=== PATIENT | female | born 1985 | race Caucasian/White ===

== ENCOUNTER 2016-09-30 18:06 | Emergency (ER) | payer MEDICARE, MEDICAID ==
[~2016-09-30] VITALS: Wt 58.0 kg
[~2016-09-30 18:06] MED LIST: ARIP5TAB7; QUET25TA26; SERT25TA
--- NOTE | 2016-09-30 18:27 | ERD ---
ER Documentation Chief Complaint Date/Time DATE: 09/30/16 TIME: 18:20 Chief Complaint abd pain, n/v HPI 30-year-old female presents to the emergency department with multiple complaints which includes epigastric pain that has been on and off for months, nauseated but no vomiting. On initial contact I noted that that there is a pack of hot Cheetos at the patient's bedside. Patient stated that she just finished a pack of hot Cheetos. Denies headache, loss of consciousness, dizziness, blurry vision, changes in vision, photophobia, facial pain, ear pain, throat pain, difficulty swallowing, neck pain, shoulder pain, chest pain, cough, hemoptysis, back pain, loss of appetite, vomiting, hematochezia, diarrhea, constipation, urinary symptoms, , the possibility of being , bladder and bowel incontinences, extremity weakness, extremity tenderness, numbness or tingling sensation, difficulty walking, recent travel, recent exposure to illness, recent antibiotic use in the last 3 months, fever, chills. Allergy: No known drug allergies. PMH: Denies. Family medical history: Denies family history of cardiac before the age of 50, cardiac disease, hypertension, cancer. A4 LMP: "2 weeks ago." Medications: Denies. Surgery: Stated that she had a cyst removal to her left chest previously. Primary Social History: Not working at this time. Smokes about 10 sticks of cigarettes a day. Denies use of alcohol, use of illegal drugs. ROS All systems reviewed and are negative except as per history of present illness. Medications Home Meds Active Scripts Acetaminophen* (Tylophen*) 500 Mg Capsule, 1 CAP PO Q6H Y for PAIN AND OR ELEVATED TEMP, #20 CAP Prov:LEIF HERNANDEZ F 09/30/16 Ondansetron Hcl* (Zofran*) 4 Mg Tablet, 4 MG PO Q8H Y for NAUSEA AND/OR VOMITING , #30 TAB Prov:PASILALEIF INFANTE F 09/30/16 Famotidine* (Pepcid*) 20 Mg Tablet, 20 MG PO DAILY for 21 Days, TAB Prov:PASILALO INFANTEAR F 09/30/16 Reported Medications Quetiapine Fumarate* (Seroquel*) 25 Mg Tablet 11/24/09 Sertraline Hcl* (Zoloft*) 25 Mg Tablet 11/24/09 Aripiprazole* (Abilify*) 5 Mg Tab 11/24/09 Allergies Allergies: Coded Allergies: No Known Drug Allergies (Verified Allergy, Mild, 11/24/09) PMhx/Soc Medical and Surgical Hx: pt denies Medical Hx History of Surgery: No Anesthesia Reaction: No Hx Neurological Disorder: No Hx Respiratory Disorders: No Hx Cardiac Disorders: No Hx Psychiatric Problems: Yes (H/O BIPOLAR DISORDER) Hx Miscellaneous Medical Probl: No Hx Alcohol Use: Yes (BEER 1-2 TIMES PER WEEK) Hx Substance Use: No Hx Tobacco Use: Yes (10 STICKS PER DAY 11/23) Smoking Status: Current every day smoker Physical Exam Vitals Vital Signs Date Time Temp Pulse Resp B/P Pulse Ox O2 Delivery O2 Flow Rate FiO2 09/30/16 18:08 97.2 107 20 113/65 98 Physical Exam CONSTITUTIONAL: Well-appearing; well-nourished; in no apparent distress. HEAD: Normocephalic; atraumatic. EYES: Conjunctiva clear, sclera non-icteric, EOM intact. PERRL Ears: Hearing intact. EACs clear, TMs non-bulging, non-inflamed, translucent & mobile, ossicles normal appearance, No obstructions, no erythema, no discharges Nose: No obstructions. No polyps. No external lesions. Mucosa non-inflamed. No external lesions, septum and turbinates normal. No rhinorrhea. No discharges. Frontal sinus is non-tender to palpation. Maxillary sinus is non-tender to palpation. MOUTH: Moist mucous membranes, no lesion, no obstructions, no vesicles, no thrush, patent airway Throat: Uvula in midline. Right tonsil is +1 with no erythema, no exudate. Left tonsil is +1 with no erythema, no exudate. Tolerating secretions well. Good gag reflex. Patent airway. Neck: Supple, without lesions, bruits, or adenopathy. No mass. Thyroid non- enlarged and non-tender to palpation. CHEST: Symmetrical chest. Respirations even and not labored. No retractions noted. CARDIOVASCULAR: Normal S1, S2. RRR. No murmurs, gallops. RESPIRATORY: Normal chest excursion with respiration; breath sounds clear and equal bilaterally; no wheezes, rhonchi, or rales. Breathing even and unlabored. Speaking in clear, full, and complete sentences w/ ease. ABDOMEN: Normal bowel sounds normal. Soft, round, non-distended, non-guarding, no tenderness, no rebound, no organomegaly, no masses, no pulsating abdominal mass. There is no right upper/right lower/epigastric/left upper/left lower abdominal tenderness and light and deep palpation. Negative on Rovsing's sign. Negative [place] sign. No hernia. Able to jump 10 times without developing abdominal pain. No peritoneal signs. : No CVA tenderness. BACK: Symmetrical shoulder. Spine is midline without deformity, tenderness. No evidence of trauma or deformity. PELVIS: Stable pelvis. No evidence of trauma or deformity. MUSCULOSKELETAL: Normal gait and station. No misalignment, asymmetry, crepitation, defects, tenderness, masses, effusions, decreased range of motion, instability, atrophy or abnormal strength or tone in the head, neck, spine, ribs , pelvis or extremities. No calf tenderness. NEUROVASCULAR: Distal pulses are present. Pedal pulse are present, equal, and normal. Capillary refills are < 2 seconds. NEUROLOGIC: Alert and oriented x4. Speaks full and clear sentences. Cranial Nerves II-XII normal. Sensation to pain, touch, and proprioception normal. Grossly unremarkable. No neurologic deficits. Romberg test is negative. PSYCHOLOGICAL: The patients mood and manner are appropriate. No hallucinations , delusions. Not SI. Not HI. Has the capacity to decide for self SKIN: Normal for age and ethnicity; warm; dry; good turgor; no apparent lesions or exudates. No rashes, hives, discoloration. Intact. Results 24 hrs Laboratory Tests Test 09/30/16 18:34 Urine Color YELLOW Urine Clarity CLOUDY Urine pH 6.5 Urine Specific [place] 1.020 Urine Ketones TRACE Urine Nitrite POSITIVE Urine Bilirubin 1+ Urine Ictotest Pending Urine Urobilinogen 1.0 E.U./dL Urine Leukocyte Esterase NEGATIVE Urine Microscopic RBC Pending Urine Microscopic WBC Pending Urine Hemoglobin NEGATIVE Urine Glucose NEGATIVE% Urine Total Protein TRACE Current Medications Medications (Trade) Dose Ordered Sig/Brii Route PRN Reason Start Time Stop Time Status Last Admin Dose Admin Miscellaneous Medication (Gi Cocktail (2)) 40 ml ONCE ONCE PO 09/30/16 18:30 09/30/16 18:31 DC 09/30/16 18:35 Ondansetron HCl (Zofran Odt) 4 mg ONCE STAT ODT 09/30/16 18:28 09/30/16 18:29 DC 09/30/16 18:35 Procedures/MDM Examination: Please see physical examination. Disease process, medical treatment was explained to the patient and family member. They verbalized understanding and agreed with the diagnostic tests, medical treatment, and follow-up care. POC urine : Negative. Urinalysis: Treatment: Zofran. GI cocktail. P.o. challenge. Re-evaluation: Denies headache, dizziness, blurry vision, neck pain, throat pain , shoulder pain, difficulty swallowing, nausea, vomiting, back pain, abdominal pain. Able to tolerate one cup of water. No episode of emesis. The emergency department. There is no right upper/right lower/epigastric/left upper/left lower abdominal tenderness and light and deep palpation. Negative on Rovsing's sign. Negative [place] sign. No hernia. Able to jump 10 times without developing abdominal pain. No peritoneal signs. No neurological deficits. No neurovascular deficits. Consultation: None. Differential diagnosis: Appendicitis versus cholecystitis versus pancreatitis versus abdominal pain versus gastritis versus urinary tract infection Medical decision makin-year-old female presents to the emergency department with multiple complaints complaining of epigastric pain that has been on and off for months, nauseated but no vomiting. On initial contact I noted that that there is a pack of Cheetos at the patient's bedside. Patient stated that she just finished a pack of Cheetos. Patient's complaint, patient' s history about her complaint, my physical findings, diagnostic test results, my reevaluation are consistent my final diagnosis of abdominal pain, nausea, gastritis, urinary tract infection. I was about to discharge patient when Cat RN, stated that patient has already eloped. Patient was last seen at around 19:00 in the waiting area with acute distress. At this time patient was also seen eating hot Cheetos. Departure Diagnosis: Primary Impression: Abdominal pain Additional Impressions: Gastritis UTI (urinary tract infection) Condition: Stable LEIF HERNANDEZ Sep 30, 2016 18:27 LEIF HERNANDEZ Sep 30, 2016 18:27
[2016-09-30] MEDS ORDERED: ONDANSETRON (ODT) 4 MG TAB ODT STA (18:28)
[2016-09-30] MEDS ORDERED: LIDOCAINE/MYLANTA 40 ML BTL PO ONE (18:30)
[2016-09-30] MEDS ORDERED: ACET500C5 PO (19:22)
[2016-09-30] MEDS ORDERED: ONDA4TAB8 PO (19:22)
[2016-09-30] MEDS ORDERED: FAMO-18 PO (19:22)
[2016-09-30 19:25] LABS: ADD UMIC YES; URINE BILIRUBIN (Dip) 1+ (NEGATIVE); URINE BLOOD (Dip) NEGATIVE (NEGATIVE); URINE COLOR YELLOW (YELLOW); URINE GLUCOSE (Dip) NEGATIVE (NEGATIVE); URINE KETONES (Dip) TRACE (NEGATIVE); URINE LEUKOCYTE ESTERASE (Dip) NEGATIVE (NEGATIVE); URINE NITRITE (Dip) POSITIVE (NEGATIVE); URINE TOTAL PROTEIN (Dip) TRACE (NEGATIVE); URINE UROBILINOGEN (Dip) 1.0 E.U./dL (0.1-1.0)
[2016-09-30 19:47] LABS: BACTERIA,URINE MANY; ICTOTEST NEGATIVE (NEGATIVE); SQUAMOUS EPITHELIAL CELL,UR FEW; URINE RBCS 0-2 /HPF (0)
== END 2016-09-30 19:44 | disposition left against medical advice (07) ==
LOC: FTE 18:06
DX: R10.13 Epigastric pain (principal); K29.70 Gastritis, unspecified, without bleeding; N39.0 Urinary tract infection, site not specified; R11.2 Nausea with vomiting, unspecified; F17.210 Nicotine dependence, cigarettes, uncomplicated
CPT/HCPCS: 81001; 99283

== ENCOUNTER 2016-11-09 20:52 | Emergency (ER) | payer MEDICARE, OTHER ==
[~2016-11-09] VITALS: Ht 152.4 cm; Wt 52.5 kg
[~2016-11-09 20:52] MED LIST changes: +ACET500C5 PO; +FAMO-96 PO; +ONDA4TAB8 PO
[2016-11-09 21:12] VITALS: Ht 152.4 cm; Wt 52.5 kg
[2016-11-09] MEDS ORDERED: CEFTRIAXONE 250 MG INJ IM ONE (22:00)
[2016-11-09] MEDS ORDERED: AZITHROMYCIN 250 MG TAB PO ONE (22:00)
[2016-11-09] MEDS ORDERED: LIDOCAINE 2% (MDV) 20 ML INJ INJ ONE (22:00)
[2016-11-09 23:11] LABS: ADD UMIC YES; UR ASCORBIC ACID NEGATIVE (NEGATIVE); UR BACTERIA MODERATE /HPF (NONE SEEN); UR BILIRUBIN (Dip) 1+ mg/dL (NEGATIVE); UR BLOOD (Dip) NEGATIVE (NEGATIVE); UR CLARITY CLOUDY (CLEAR); UR COLOR AMBER (YELLOW); UR GLUCOSE (Dip) NEGATIVE (NEGATIVE); UR KETONES (Dip) TRACE mg/dL (NEGATIVE); UR LEUKOCYTE ESTERASE (Dip) 2+ Leu/ul (NEGATIVE); UR MUCUS MANY /HPF (NONE SEEN); UR NITRITE (Dip) NEGATIVE (NEGATIVE); UR RBC 2 /HPF (0-5); UR SPECIFIC GRAVITY (Dip) 1.028 (1.003-1.030); UR SQUAMOUS EPITHELIAL CELL FEW /HPF (FEW); UR TOTAL PROTEIN (Dip) 1+ mg/dl (NEGATIVE); UR UROBILINOGEN (Dip) 1+ mg/dL (NEGATIVE)
[2016-11-09] MEDS ORDERED: METGEL45 TOP (23:26)
[2016-11-09] MEDS ORDERED: CLOT30CR24 TOP (23:27)
[2016-11-09] MEDS ORDERED: CEPH-443 PO (23:27)
[2016-11-09] MEDS ORDERED: NORG1TAB34 PO (23:27)
--- NOTE | 2016-11-09 23:44 | ERD ---
ER Documentation Chief Complaint Date/Time DATE: 11/09/16 TIME: 23:40 Chief Complaint Pt reports she has bacterial vaginitis and would like gel medication HPI This is a 30-year-old female presents to the ER with foul-smelling vaginal discharge over the last 2 weeks. Patient denies any pelvic pain. Patient states that she got a prescription for metronidazole however has not worked. Patient states that she is currently sexually active with her boyfriend and uses protection. Patient is also worried about a hemorrhoid that she has had for a while, she does not have any rectal bleeding or rectal pain at this time. Patient denies any urinary frequency or dysuria. He smokes about 5 cigarettes a day. ROS 12 point review of systems was done, all negative except per HPI. Medications Home Meds Active Scripts Norgestimate-Ethinyl Estradiol (Ortho Tri-Cyclen 28 Tablet) 1 Each Tablet, 1 EACH PO QHS for 28 Days, TAB Prov:GUY OSEI 11/09/16 Clotrimazole* (Clotrimazole* AF) 1% - 30 Gm Cream.gm., 1 APPLIC TOP BID for 7 Days, TUB Prov:AFRNAZGUY C 11/09/16 Cephalexin* (Keflex*) 500 Mg Capsule, 500 MG PO BID for 7 Days, CAP Prov:FARNAZGUY C 11/09/16 Metronidazole* (Metrogel*) 0.75% -45 Gram Gel, 1 APPLIC TOP BID for 7 Days, TUB Prov:KATHYA OSEIYOLANDA Maldonado 11/09/16 Acetaminophen* (Tylophen*) 500 Mg Capsule, 1 CAP PO Q6H Y for PAIN AND OR ELEVATED TEMP, #20 CAP Prov:LEIF HERNANDEZ 09/30/16 Ondansetron Hcl* (Zofran*) 4 Mg Tablet, 4 MG PO Q8H Y for NAUSEA AND/OR VOMITING , #30 TAB Prov:LEIF HERNANDEZ 09/30/16 Famotidine* (Pepcid*) 20 Mg Tablet, 20 MG PO DAILY for 21 Days, TAB Prov:LEIF HERNANDEZ 09/30/16 Reported Medications Quetiapine Fumarate* (Seroquel*) 25 Mg Tablet 11/24/09 Sertraline Hcl* (Zoloft*) 25 Mg Tablet 11/24/09 Aripiprazole* (Abilify*) 5 Mg Tab 11/24/09 Allergies Allergies: Coded Allergies: No Known Drug Allergies (Verified Allergy, Mild, 11/24/09) diphenhydramine (Verified Allergy, Unknown, 11/09/16) PMhx/Soc History of Surgery: Yes (dermal cyst removal ) Anesthesia Reaction: No Hx Neurological Disorder: No Hx Respiratory Disorders: No Hx Cardiac Disorders: No Hx Psychiatric Problems: Yes (H/O BIPOLAR DISORDER on abilify) Hx Miscellaneous Medical Probl: Yes (bacterial vaginosis) Hx Alcohol Use: Yes (seldom) Hx Substance Use: No Hx Tobacco Use: Yes (10 STICKS PER DAY) Smoking Status: Current every day smoker Physical Exam Vitals Vital Signs Date Time Temp Pulse Resp B/P Pulse Ox O2 Delivery O2 Flow Rate FiO2 11/09/16 21:12 97.4 139 18 134/88 99 Physical Exam GENERAL: The patient is well developed and appropriate for usual state of health , in no apparent distress. HEENT: Atraumatic. CHEST: Clear to auscultation bilaterally. There are no rales, wheezes or rhonchi. HEART: Regular rate and rhythm. No murmurs, clicks, rubs or gallops. ABDOMEN: Soft, nontender and nondistended. Good bowel sounds. No rebound or guarding. No gross peritonitis. No gross organomegaly or masses. No Cedillo sign or McBurney point tenderness. BACK: No midline or flank tenderness. : there is foul smelling panchal vaginal discharge, external genitalia is normal with no lesions. negative chandelier sign. RECTAL: there is an external hemorrhoid seen, no bleeding. Beefy red rash around anus NEURO: Alert and oriented. Results 24 hrs Laboratory Tests Test 11/09/16 20:37 Urine Color ELLIE Urine Clarity CLOUDY Urine pH 5.0 Urine Specific [place] 1.028 Urine Ketones TRACEmg/dL Urine Nitrite NEGATIVEmg/dL Urine Bilirubin 1+mg/dL Urine Urobilinogen 1+mg/dL Urine Leukocyte Esterase 2+Marielena/ul Urine Microscopic RBC 2/HPF Urine Microscopic WBC 8/HPF Urine Squamous Epithelial Cells FEW/HPF Urine Bacteria MODERATE/HPF Urine Mucus MANY/HPF Urine Hemoglobin NEGATIVEmg/dL Urine Glucose NEGATIVEmg/dL Urine Total Protein 1+mg/dl Current Medications Medications (Trade) Dose Ordered Sig/Brii Route PRN Reason Start Time Stop Time Status Last Admin Dose Admin Ceftriaxone Sodium (Rocephin) 250 mg ONCE ONCE IM 11/09/16 22:00 11/09/16 22:01 DC 11/09/16 22:18 Lidocaine (Xylocaine 2% (Mdv) 20 ml) 20 ml ONCE ONCE INJ 11/09/16 22:00 11/09/16 22:01 DC Azithromycin (Zithromax) 1,000 mg ONCE ONCE PO 11/09/16 22:00 11/09/16 22:01 DC 11/09/16 22:18 Procedures/MDM This is a 30-year-old female presents to the ER with ongoing vaginal discharge, at this time patient's was treated prophylactically for chlamydia and gonorrhea and her urine was sent to the lab for testing. On physical examination she did have foul-smelling discharge will be sent home with MetroGel. Patient was also noted to have a beefy red rash around the anus which could be fungal in etiology. Urinalysis was positive for leukocytes she will be treated for urinary tract infection with Keflex. Patient also requested control which was given to her. She denied any problems with blood pressure or any other medical problems which would be contraindicated in control. Patient is to follow-up with her primary care doctor within 1-2 days return to ER sooner if symptoms worsen. My medical decision making shared with the patient she understands and agrees with plan. Departure Diagnosis: Primary Impression: UTI (urinary tract infection) Additional Impression: Bacterial vaginosis Condition: Stable Patient Instructions: Vaginitis, Bacterial Additional Instructions: Call your primary care doctor TOMORROW for an appointment during the next 1-2 days.See the doctor sooner or return here if your condition worsens before your appointment time. GUY OSEI Nov 09, 2016 23:44
== END 2016-11-10 00:14 | disposition left against medical advice (07) ==
LOC: FTE 20:52
DX: N39.0 Urinary tract infection, site not specified (principal); F17.210 Nicotine dependence, cigarettes, uncomplicated
CPT/HCPCS: 81001; 87591; 96372; 99284; J0696

== ENCOUNTER 2016-12-16 12:32 | Emergency (ER) | payer MEDICARE, OTHER ==
[~2016-12-16] VITALS: Ht 152.4 cm; Wt 47.5 kg
[~2016-12-16 12:32] MED LIST changes: +CEPH-443 PO; +CLOT30CR24 TOP; +METGEL45 TOP; +NORG1TAB34 PO
[2016-12-16 12:43] VITALS: Ht 152.4 cm; Wt 47.5 kg
[2016-12-16] MEDS ORDERED: HYDROmorphONE 1 MG/ML SYG IV STA (13:18)
--- NOTE | 2016-12-16 13:21 | ERD ---
ER Documentation Chief Complaint Date/Time DATE: 12/16/16 TIME: 13:21 Chief Complaint Complains of a cellulites to right ankle HPI 30-year-old female previously healthy is presenting with redness and pain behind her right leg. She states it is a "spider bite". She noticed that 2 days ago, and it has been getting progressively worse. She has pain with walking but is able to bear weight on the leg. She denies any IV drug use or any history of abscesses. No fevers or chills. ROS All systems reviewed and are negative except as per history of present illness. Medications Home Meds Active Scripts Ibuprofen* (Motrin*) 600 Mg Tab, 600 MG PO Q6H Y for PAIN AND OR ELEVATED TEMP, #30 TAB Prov:ROBERTO DOMINGUEZ MD 12/16/16 Sulfamethoxazole/Trimethoprim* (Bactrim Ds* Tablet) 1 Each Tablet, 1 TAB PO BID , #14 TAB Prov:ROBERTO DOMINGUEZ MD 12/16/16 Cephalexin* (Keflex*) 500 Mg Capsule, 500 MG PO TID for 7 Days, CAP Prov:ROBERTO DOMINGUEZ MD 12/16/16 Norgestimate-Ethinyl Estradiol (Ortho Tri-Cyclen 28 Tablet) 1 Each Tablet, 1 EACH PO QHS for 28 Days, TAB Prov:GUY OSEI 11/09/16 Clotrimazole* (Clotrimazole* AF) 1% - 30 Gm Cream.gm., 1 APPLIC TOP BID for 7 Days, TUB Prov:GUY OSEI 11/09/16 Cephalexin* (Keflex*) 500 Mg Capsule, 500 MG PO BID for 7 Days, CAP Prov:GUY OSEI 11/09/16 Metronidazole* (Metrogel*) 0.75% -45 Gram Gel, 1 APPLIC TOP BID for 7 Days, TUB Prov:GUY OSEI 11/09/16 Acetaminophen* (Tylophen*) 500 Mg Capsule, 1 CAP PO Q6H Y for PAIN AND OR ELEVATED TEMP, #20 CAP Prov:ELIF HERNANDEZ 09/30/16 Ondansetron Hcl* (Zofran*) 4 Mg Tablet, 4 MG PO Q8H Y for NAUSEA AND/OR VOMITING , #30 TAB Prov:LEIF HERNANDEZ 09/30/16 Famotidine* (Pepcid*) 20 Mg Tablet, 20 MG PO DAILY for 21 Days, TAB Prov:LEIF HERNANDEZ 09/30/16 Reported Medications Quetiapine Fumarate* (Seroquel*) 25 Mg Tablet 11/24/09 Sertraline Hcl* (Zoloft*) 25 Mg Tablet 11/24/09 Aripiprazole* (Abilify*) 5 Mg Tab 11/24/09 Allergies Allergies: Coded Allergies: diphenhydramine (Verified Allergy, Unknown, 11/09/16) PMhx/Soc History of Surgery: Yes (dermal cyst removal ) Anesthesia Reaction: No Hx Neurological Disorder: No Hx Respiratory Disorders: No Hx Cardiac Disorders: No Hx Psychiatric Problems: Yes (H/O BIPOLAR DISORDER on abilify) Hx Miscellaneous Medical Probl: Yes (bacterial vaginosis) Hx Alcohol Use: Yes (seldom) Hx Substance Use: No Hx Tobacco Use: Yes (10 STICKS PER DAY) FmHx Family History: No diabetes Physical Exam Vitals Vital Signs Date Time Temp Pulse Resp B/P Pulse Ox O2 Delivery O2 Flow Rate FiO2 12/16/16 12:43 98.6 114 20 119/68 99 Physical Exam Const: Well-appearing, no apparent distress, dirty clothing Head: Atraumatic Eyes: Normal Conjunctiva ENT: Normal External Ears, Nose and Mouth. Neck: Full range of motion..~ No meningismus. Resp: Clear to auscultation bilaterally Cardio: Regular rate and rhythm, no murmurs Abd: Soft, non tender, non distended. Normal bowel sounds Skin: Erythematous area behind the right lower leg over Achilles tendon with a 4 x 3 centimeter area of fluctuance and surrounding induration. No erythema or swelling overlying the actual ankle joint. She is able to range the ankle with no significant pain. Foot appears normal. 2+ DP and PT pulses. Back: No midline or flank tenderness Ext: See skin exam. Neur: Awake and alert Psych: Normal Mood and Affect Results 24 hrs Current Medications Medications (Trade) Dose Ordered Sig/Brii Route PRN Reason Start Time Stop Time Status Last Admin Dose Admin Hydromorphone HCl (Dilaudid) 0.5 mg ONCE STAT IV 12/16/16 13:18 12/16/16 13:19 DC 12/16/16 13:34 Trimethoprim/ Sulfamethoxazole (Bactrim (Ds)) 1 tab ONCE ONCE PO 12/16/16 13:30 12/16/16 13:31 DC 12/16/16 13:34 Cephalexin (Keflex) 500 mg ONCE ONCE PO 12/16/16 13:30 12/16/16 13:31 DC 12/16/16 13:34 Lidocaine/ Epinephrine (Xylocaine 2%/ Epi Mpf(Sdv)) 20 ml ONCE ONCE INJ 12/16/16 13:30 12/16/16 13:31 DC 12/16/16 13:34 Midazolam HCl (Versed) 2 mg PRN ONCE IV 12/16/16 14:00 12/16/16 14:01 Acetaminophen/ Hydrocodone Bitart ([place] (10/325)) 1 tab ONCE ONCE PO 12/16/16 14:00 12/16/16 14:01 Procedures/MDM Abscess Incision and Drainage with irrigation by me: Location: Right posterior lower leg Anesthesia: Local 2% Lidocaine with epinephrine Technique: Irrigated. Disrupted loculations w/ instrumentation Packing: None Complications: None. Neurovascularly intact post procedure. Tendon intact post procedure 48 hour wound check. Scar minimization instructions given. Wound care was discussed for home. Patient's skin symptoms have stabilized while they have been evaluated in the department and are appropriate for outpatient care and work up. Exam and w/u not consistent w/ sepsis, deep space infection, joint infection or foreign body. Patient will be discharged with a prescription for Bactrim and Keflex. Departure Diagnosis: Primary Impression: Cellulitis of right lower leg Additional Impression: Abscess of right leg excluding foot Condition: Stable EKROBERTO MARIANO MD Dec 16, 2016 13:21
[2016-12-16] MEDS ORDERED: CEPHALEXIN 500 MG CAP PO ONE (13:30)
[2016-12-16] MEDS ORDERED: LIDOCAINE 2%/EPI MPF (SDV) 20 ML VIAL INJ ONE (13:30)
[2016-12-16] MEDS ORDERED: TRIMETHOPRIM/SULFAMETHOX (DS) TAB PO ONE (13:30)
[2016-12-16] MEDS ORDERED: SULF1TAB31 PO (13:38)
[2016-12-16] MEDS ORDERED: CEPH-443 PO (13:38)
[2016-12-16] MEDS ORDERED: IBUP-1542 PO (13:38)
[2016-12-16] MEDS ORDERED: HYDROCODONE/APAP (10/325) TAB PO ONE (14:00)
[2016-12-16] MEDS ORDERED: MIDAZOLAM 1 MG/ML 2 ML INJ IV ONE (14:00)
[2016-12-16 14:41] VITALS: BP 125/78; PULSE 78; RESP 18
== END 2016-12-16 14:44 | disposition home or self-care (01) ==
LOC: E/R 12:32
DX: L03.115 Cellulitis of right lower limb (principal); L02.415 Cutaneous abscess of right lower limb; F17.210 Nicotine dependence, cigarettes, uncomplicated
CPT/HCPCS: 10060; 96374; 99284; J1170; J2250

== ENCOUNTER 2017-02-18 19:27 | Emergency (ER) | payer MEDICARE, OTHER ==
[~2017-02-18] VITALS: Ht 157.5 cm; Wt 45.5 kg
[~2017-02-18 19:27] MED LIST changes: +IBUP-1542 PO; +SULF1TAB31 PO
[2017-02-18 21:23] VITALS: Ht 157.5 cm; Wt 45.5 kg
== END 2017-02-18 21:56 | disposition left against medical advice (07) ==
LOC: FTE 19:27
DX: Z53.21 Procedure and treatment not carried out due to patient leaving prior to being seen by health care provider (principal)

== ENCOUNTER 2017-02-19 21:56 | Emergency (ER) | payer MEDICARE, OTHER ==
[~2017-02-19] VITALS: Ht 157.5 cm; Wt 45.0 kg
[2017-02-19 22:12] VITALS: Ht 157.5 cm; Wt 45.0 kg
[2017-02-20] MEDS ORDERED: SOD CHLORIDE 0.9% 500 ML IV STA (02:26)
--- NOTE | 2017-02-20 03:58 | RADRPT ---
PROCEDURE: ULTRASOUND LIMITED ABDOMEN CLINICAL INDICATION: 31-year-old female with abdominal pain. TECHNIQUE: Multiple sonographic of the right upper quadrant of the abdomen were obtained. The imag es were reviewed on a PACS workstation. COMPARISON: None. FINDINGS: The pancreas is partially visualized and is otherwise without abnormal echogenicity. The liver displays normal echogenicity. The liver measures 14.9 cm in length. No evidence of intrah epatic biliary ductal dilatation is seen. The portal and hepatic veins are unremarkable. The gallbladder is contracted without evidence for calcified stones or significant wall thickening. No pericholecystic fluid is seen. The common bile duct measures 2.7 mm and is not dilated. The right kidney displays normal echogenicity. The right kidney measures 11.6 cm in maximal length. No caliectasis or hydronephrosis is seen. No free fluid is seen. IMPRESSION: Unremarkable right upper quadrant abdominal ultrasound. .Tiago Mandel MD, MD Date Time Electronically viewed and signed by .Tiago Mandel MD, on 02/20/2017 03:57 .M/
[2017-02-20 04:00] VITALS: TEMP 97.9
[2017-02-20 04:22] LABS: BASOPHIL # 0.1 10^3/ul (0.0-0.1); BASOPHILS % 0.6 % (0.0-2.0); EOSINOPHILS # 0.1 10^3/ul (0.0-0.5); EOSINOPHILS % 1.7 % (0.0-7.0); HEMATOCRIT 36.9 % (37.0-47.0); HEMOGLOBIN 11.6 g/dl (12.0-16.0); LYMPHOCYTES # 2.1 10^3/ul (0.8-2.9); LYMPHOCYTES % 26.4 % (15.0-51.0); MEAN CORPUSCULAR HEMOGLOBIN 27.7 pg (29.0-33.0); MEAN CORPUSCULAR HGB CONC 31.4 g/dl (32.0-37.0); MEAN CORPUSCULAR VOLUME 88.1 fl (82.0-101.0); MEAN PLATELET VOLUME 10.8 fl (7.4-10.4); MONOCYTE # 0.9 10^3/ul (0.3-0.9); MONOCYTES % 11.7 % (0.0-11.0); NEUTROPHIL # 4.6 10^3/ul (1.6-7.5); NEUTROPHILS % 59.3 % (39.0-77.0); PLATELET COUNT 343 10^3/UL (140-415); RED BLOOD COUNT 4.19 10^6/ul (4.20-5.40); RED CELL DISTRIBUTION WIDTH 14.1 % (11.5-14.5); WHITE BLOOD COUNT 7.8 10^3/ul (4.8-10.8)
[2017-02-20] MEDS ORDERED: RANI150T9 PO (04:25)
--- NOTE | 2017-02-20 04:26 | ERD ---
ER Documentation Chief Complaint Chief Complaint RUQ ABD PAIN X 2 WKS. BACK PAIN X 4 DAYS. FEVER X 2 DAYS. HOMELESS HPI 31-year-old female with complaints of epigastric and right upper quadrant abdominal pain for 2 weeks. No nausea no vomiting. Pain is mild to moderate in intensity with no exacerbating or alleviating factors. No other current issues. ROS All systems reviewed and are negative except as per history of present illness. Medications Home Meds Active Scripts Ranitidine Hcl* (Zantac*) 150 Mg Tablet, 150 MG PO BID Y for EPIGASTRIC PAIN, # 30 TAB Prov:MYAH ERICKSON 02/20/17 Discontinued Reported Medications Quetiapine Fumarate* (Seroquel*) 25 Mg Tablet 11/24/09 Sertraline Hcl* (Zoloft*) 25 Mg Tablet 11/24/09 Aripiprazole* (Abilify*) 5 Mg Tab 11/24/09 Discontinued Scripts Ibuprofen* (Motrin*) 600 Mg Tab, 600 MG PO Q6H Y for PAIN AND OR ELEVATED TEMP, #30 TAB Prov:ROBERTO DOMINGUEZ MD 12/16/16 Sulfamethoxazole/Trimethoprim* (Bactrim Ds* Tablet) 1 Each Tablet, 1 TAB PO BID , #14 TAB Prov:ROBERTO DOMINGUEZ MD 12/16/16 Cephalexin* (Keflex*) 500 Mg Capsule, 500 MG PO TID for 7 Days, CAP Prov:ROBERTO DOMINGUEZ MD 12/16/16 Norgestimate-Ethinyl Estradiol (Ortho Tri-Cyclen 28 Tablet) 1 Each Tablet, 1 EACH PO QHS for 28 Days, TAB Prov:GUY OSEI 11/09/16 Clotrimazole* (Clotrimazole* AF) 1% - 30 Gm Cream.gm., 1 APPLIC TOP BID for 7 Days, TUB Prov:GUY OSEI 11/09/16 Cephalexin* (Keflex*) 500 Mg Capsule, 500 MG PO BID for 7 Days, CAP Prov:GUY OSEI 11/09/16 Metronidazole* (Metrogel*) 0.75% -45 Gram Gel, 1 APPLIC TOP BID for 7 Days, TUB Prov:GUY OSEI 7/14/17 Acetaminophen* (Tylophen*) 500 Mg Capsule, 1 CAP PO Q6H Y for PAIN AND OR ELEVATED TEMP, #20 CAP Prov:LEIF HERNANDEZ 09/30/16 Ondansetron Hcl* (Zofran*) 4 Mg Tablet, 4 MG PO Q8H Y for NAUSEA AND/OR VOMITING , #30 TAB Prov:LEIF HERNANDEZ 09/30/16 Famotidine* (Pepcid*) 20 Mg Tablet, 20 MG PO DAILY for 21 Days, TAB Prov:LEIF HERNANDEZ 09/30/16 Allergies Allergies: Coded Allergies: diphenhydramine (Verified Allergy, Unknown, 02/18/17) PMhx/Soc History of Surgery: Yes (dermal cyst removal ) Anesthesia Reaction: No Hx Neurological Disorder: No Hx Respiratory Disorders: No Hx Cardiac Disorders: No Hx Psychiatric Problems: Yes (H/O BIPOLAR DISORDER on abilify) Hx Miscellaneous Medical Probl: Yes (bacterial vaginosis) Hx Alcohol Use: Yes (seldom) Hx Substance Use: No Hx Tobacco Use: Yes (10 STICKS PER DAY) Smoking Status: Light tobacco smoker Physical Exam Vitals Vital Signs Date Time Temp Pulse Resp B/P Pulse Ox O2 Delivery O2 Flow Rate FiO2 02/20/17 02:00 98.3 99 18 98/65 98 Room Air 02/19/17 22:12 99.3 118 20 124/83 98 Physical Exam Const: [] Head: Atraumatic Eyes: Normal Conjunctiva ENT: Normal External Ears, Nose and Mouth. Neck: Full range of motion..~ No meningismus. Resp: Clear to auscultation bilaterally Cardio: Regular rate and rhythm, no murmurs Abd: Soft, non tender, non distended. Normal bowel sounds Skin: No petechiae or rashes Back: No midline or flank tenderness Ext: No cyanosis, or edema Neur: Awake and alert Psych: Normal Mood and Affect Result Diagram: 02/20/175 Results 24 hrs Laboratory Tests Test 02/20/17 03:15 White Blood Count 7.810^3/ul Red Blood Count 4.1910^6/ul Hemoglobin 11.6g/dl Hematocrit 36.9% Mean Corpuscular Volume 88.1fl Mean Corpuscular Hemoglobin 27.7pg Mean Corpuscular Hemoglobin Concent 31.4g/dl Red Cell Distribution Width 14.1% Platelet Count 53411^3/UL Mean Platelet Volume 10.8fl Neutrophils % 59.3% Lymphocytes % 26.4% Monocytes % 11.7% Eosinophils % 1.7% Basophils % 0.6% Nucleated Red Blood Cells % 0.0/100WBC Neutrophils # 4.610^3/ul Lymphocytes # 2.110^3/ul Monocytes # 0.910^3/ul Eosinophils # 0.110^3/ul Basophils # 0.110^3/ul Nucleated Red Blood Cells # 0.010^3/ul Current Medications Medications (Trade) Dose Ordered Sig/Brii Route PRN Reason Start Time Stop Time Status Last Admin Dose Admin Sodium Chloride (NS) 500 ml @ 500 mls/hr Q1H STAT IV 02/20/17 02:26 02/20/17 03:25 DC 02/20/17 02:26 Procedures/MDM Medical decision-makin-year-old female with nondescript abdominal pain that is since resolved. At this point clinically stable for outpatient management. Patient will be discharged home. Has been advised to follow-up in 8 hours. No evidence of surgical abdomen. Departure Diagnosis: Primary Impression: Abdominal pain Additional Impression: Gastritis Condition: Stable Patient Instructions: Abdominal Pain MYAH ERICKSON Feb 20, 2017 04:26
[2017-02-20 04:29] LABS: ADD UMIC YES; UR ASCORBIC ACID 40 mg/dL (NEGATIVE); UR BACTERIA FEW /HPF (NONE SEEN); UR BILIRUBIN (Dip) NEGATIVE (NEGATIVE); UR BLOOD (Dip) NEGATIVE (NEGATIVE); UR CLARITY CLOUDY (CLEAR); UR COLOR YELLOW (YELLOW); UR GLUCOSE (Dip) NEGATIVE (NEGATIVE); UR KETONES (Dip) NEGATIVE (NEGATIVE); UR LEUKOCYTE ESTERASE (Dip) 3+ Leu/ul (NEGATIVE); UR MUCUS MANY /HPF (NONE SEEN); UR NITRITE (Dip) NEGATIVE (NEGATIVE); UR RBC 5 /HPF (0-5); UR SQUAMOUS EPITHELIAL CELL FEW /HPF (FEW); UR TOTAL PROTEIN (Dip) 1+ mg/dl (NEGATIVE); UR UROBILINOGEN (Dip) 2+ mg/dL (NEGATIVE)
[2017-02-20 04:42] LABS: ALBUMIN 4.2 g/dl (3.3-4.9); ALBUMIN/GLOBULIN RATIO 1.13; CALCIUM 8.7 mg/dl (8.4-10.2); CREATININE 0.77 mg/dl (0.44-1.00); POTASSIUM 4.6 mmol/L (3.5-5.1); TOTAL PROTEIN 7.9 g/dl (6.1-8.1)
[2017-02-20 05:22] LABS: BILIRUBIN,INDIRECT 0.1 mg/dl (0-1.1); BILIRUBIN,TOTAL 0.1 mg/dl (0.2-1.3)
[2017-02-20 05:37] VITALS: BP 102/64; PULSE 95; RESP 17
== END 2017-02-20 05:39 | disposition home or self-care (01) ==
LOC: E/R 21:56
DX: K29.70 Gastritis, unspecified, without bleeding (principal); F17.210 Nicotine dependence, cigarettes, uncomplicated
CPT/HCPCS: 36415; 76705; 80053; 81001; 83690; 85025; 99285; J7040

== ENCOUNTER 2017-03-11 19:42 | Inpatient (IN) | payer MEDICARE, OTHER ==
[~2017-03-11] VITALS: Ht 154.9 cm; Wt 47.5 kg
[~2017-03-11 19:42] MED LIST changes: -ACET500C5 PO; -ARIP5TAB7; -CEPH-443 PO; -CLOT30CR24 TOP; -FAMO-96 PO; -IBUP-1542 PO; -METGEL45 TOP; -NORG1TAB34 PO; -ONDA4TAB8 PO; -QUET25TA26; +RANI150T9 PO; -SERT25TA; -SULF1TAB31 PO
[2017-03-11] MEDS ORDERED: SODIUM CHLORIDE 0.9% 1L BAG IV* STA (22:17)
[2017-03-11] MEDS ORDERED: VANCOMYCIN 1 GM (PMX) 250 ML IVPB STA (22:17)
[2017-03-11] MEDS ORDERED: PIPER-TAZO 3.375 GM IV (PMX) 50 ML IVPB STA (22:17)
[2017-03-11] MEDS ORDERED: morphine 4 MG/ML VIAL IV STA (22:17)
--- NOTE | 2017-03-11 22:40 | ERD ---
ER Documentation Chief Complaint Chief Complaint Pt reports L eye swelling since yesterday HPI Patient is a 31-year-old female who presents to the ED for concerns of left eye and cheek swelling 1 day. Patient states she had numerous pimples on her cheek which she picked up. Patient states that the swelling and redness surrounding her left orbital region and cheek have been worsening throughout the day. She denies any fevers, chills, nausea, vomiting, chest pain, shortness breath or loss of consciousness. Patient denies any IV drug use. Patient denies any history of diabetes. ROS All systems reviewed and are negative except as per history of present illness. Medications Home Meds Active Scripts Ranitidine Hcl* (Zantac*) 150 Mg Tablet, 150 MG PO BID Y for EPIGASTRIC PAIN, # 30 TAB Prov:MYAH ERICKSON 02/20/17 Allergies Allergies: Coded Allergies: diphenhydramine (Verified Allergy, Unknown, 02/18/17) PMhx/Soc History of Surgery: Yes (dermal cyst removal ) Anesthesia Reaction: No Hx Neurological Disorder: No Hx Respiratory Disorders: No Hx Cardiac Disorders: No Hx Psychiatric Problems: Yes (H/O BIPOLAR DISORDER on abilify) Hx Miscellaneous Medical Probl: Yes (bacterial vaginosis) Hx Alcohol Use: Yes (seldom) Hx Substance Use: No Hx Tobacco Use: Yes (10 STICKS PER DAY) Physical Exam Vitals Vital Signs Date Time Temp Pulse Resp B/P Pulse Ox O2 Delivery O2 Flow Rate FiO2 03/11/17 21:38 98.3 120 20 137/81 99 Physical Exam GENERAL: Well-developed, well-nourished female. Appears in no acute distress. HEAD: Normocephalic, atraumatic. EYES: Left upper and lower eyelids swollen. Patient is able to follow finger however difficulty noted. + Purulent discharge in L eyelashes. No conjunctival erythema noted bilaterally. FACE: Significant erythema and swelling surrounding the left orbital region, left cheek, right orbital region. +Abscess noted to the L cheek. Active yellow discharge noted. ENT: Moist mucous membranes. No uvula deviation. No kissing tonsils. NECK: Supple. Normal range of motion of the neck. LUNG: Clear to auscultation bilaterally. HEART: Tachycardic. Regular rhythm. EXTREMITIES: Equal pulses bilaterally. No peripheral clubbing, cyanosis or edema. No unilateral leg swelling. NEUROLOGIC: Alert and oriented. Moving all four extremities without any difficulty. Normal speech. Steady gait. Result Diagram: 03/11/17222903/11/172229 Results 24 hrs Laboratory Tests Test 03/11/17 22:30 White Blood Count 10.210^3/ul Red Blood Count 4.0710^6/ul Hemoglobin 11.5g/dl Hematocrit 35.5% Mean Corpuscular Volume 87.2fl Mean Corpuscular Hemoglobin 28.3pg Mean Corpuscular Hemoglobin Concent 32.4g/dl Red Cell Distribution Width 14.6% Platelet Count 09073^3/UL Mean Platelet Volume 9.6fl Neutrophils % 67.0% Lymphocytes % 19.4% Monocytes % 12.1% Eosinophils % 0.8% Basophils % 0.4% Nucleated Red Blood Cells % 0.0/100WBC Neutrophils # 6.810^3/ul Lymphocytes # 2.010^3/ul Monocytes # 1.210^3/ul Eosinophils # 0.110^3/ul Basophils # 0.010^3/ul Nucleated Red Blood Cells # 0.010^3/ul Prothrombin Time 15.0Sec Prothrombin Time Ratio 1.2 INR International Normalized Ratio 1.17 Activated Partial Thromboplast Time 36.3Sec Sodium Level 142mmol/L Potassium Level 3.9mmol/L Chloride Level 107mmol/L Carbon Dioxide Level 27mmol/L Anion Gap 12 Blood Urea Nitrogen 15mg/dl Creatinine 0.68mg/dl Glucose Level 86mg/dl Lactic Acid Level 1.1mmol/L Calcium Level 9.2mg/dl Total Bilirubin 0.4mg/dl Direct Bilirubin 0.00mg/dl Indirect Bilirubin 0.4mg/dl Aspartate Amino Transf (AST/SGOT) 24IU/L Alanine Aminotransferase (ALT/SGPT) 26IU/L Alkaline Phosphatase 72IU/L Total Protein 7.5g/dl Albumin 3.7g/dl Globulin 3.80g/dl Albumin/Globulin Ratio 0.97 Current Medications Medications (Trade) Dose Ordered Sig/Brii Route PRN Reason Start Time Stop Time Status Last Admin Dose Admin Sodium Chloride 1390 ml 1,390 ml BOLUS OVER 2 HOURS STAT IV* 03/11/17 22:17 03/11/17 22:20 DC 11/13/17 22:43 Vancomycin HCl 250 ml @ 125 mls/hr ONCE STAT IVPB 03/11/17 22:17 03/12/17 00:16 DC 03/11/17 22:43 Piperacillin Sod/ Tazobactam Sod (Zosyn 3.375gm/ 50 ml (Pmx)) 50 ml @ 100 mls/hr ONCE STAT IVPB 03/11/17 22:17 03/11/17 22:46 DC 03/11/17 22:43 Morphine Sulfate (morphine) 4 mg ONCE STAT IV 03/11/17 22:17 03/11/17 22:20 DC 03/11/17 22:43 Procedures/MDM ED COURSE: The patient was stable throughout ED course. I kept the patient and/or family informed of laboratory and diagnostic imaging results throughout the ED course. EKG: Read by Dr. Pizarro, attending physician. EKG shows normal sinus rhythm at a rate of 88 bpm. No arrhythmias or acute ST elevations noted. DIAGNOSTIC IMAGING: Read by radiologist. Patient: SAMANTA DWYER : 1985 Age: 31 Sex: F MR #: [id number] DOS: 03/11/17 2223 Ordering MD: DANIE CASTANEDA PA-C Location: [facility] Room/Bed: PROCEDURE: CT Head with and without contrast. CLINICAL INDICATION: Facial abscess. TECHNIQUE: CT of the head was obtained following the intravenous contrast administration of 100 cc Omnipaque 300 contrast. The administered radiation dose was CTDI vol = 45 mGy, DLP =810mGy-cm. One or more of the following dose reduction techniques were used: automated exposure control, adjustment of the mA and/or kV according to patient size and/or use of iterative reconstruction technique. DICOM images are available. COMPARISON: There are no similar studies submitted for comparison. FINDINGS: There is motion artifact which limits the exam. The ventricles and sulci are within normal limits.There is no abnormal intracranial enhancement.There is no acute intracranial hemorrhage or extra- axial fluid collection.There is no mass effect.No midline shift is identified.There is no loss of low-white differentiation to suggest acute infarction. No abnormal intracranial enhancement is identified. The calvarium and skull base are grossly intact. Please refer to the CT scan of the facial bones. IMPRESSION: No acute intracranial hemorrhage, extra-axial fluid collection, or abnormal intracranial enhancement.. RPTAT: HIKT .Preet Tay MD, Date Time Electronically viewed and signed by .Preet Tay MD, MD on 03/12/2017 00:54 .T/ CC: DANIE CASTANEDA PA-C DIAGNOSTIC IMAGING REPORT Patient: SAMANTA DWYER : 1985 Age: 31 Sex: F MR #: [id number] DOS: 03/11/17 2223 Ordering MD: DANIE CASTANEDA PA-C Location: [facility] Room/Bed: PROCEDURE: CT facial bones with contrast. CLINICAL INDICATION: Pain TECHNIQUE: CT of the facial bones was obtained following the intravenous administration of 100 cc Omnipaque 300. Coronal and sagittal re-formations were provided. The administered radiation dose was CTDI vol = 53 mGy, DLP = 1146 mGy-cm. One or more of the following dose reduction techniques were used: automated exposure control, adjustment of the mA and/or kV according to patient size and/or use of iterative reconstruction technique. DICOM images are available. COMPARISON: No pertinent prior examinations were submitted for comparison. FINDINGS: There is extensive soft tissue swelling in the left premaxillary face. No definite drainable fluid collection is seen in the region of the there is a fusiform area of low attenuation extending obliquely from the skin surface to the region of the nasal bones which could represent phlegmon. This measures up to 2 cm in length and 6 mm in diameter. Inflammatory changes extend into the periorbital soft tissues. There are no intraorbital inflammatory changes. There is mild enlargement of the left submandibular lymph nodes. The globes are intact. The extraocular muscles and optic nerve complexes are symmetric and normal in caliber. The paranasal sinuses are well aerated. The visualized portions of the brain are unremarkable. No destructive osseous lesion is identified.There is no acute fracture. IMPRESSION: Left premaxillary and periorbital facial inflammatory changes likely due to infection. No definite drainable fluid collection is identified although there is likely an area of phlegmonous change. Mild left submandibular adenopathy which is likely reactive. RPTAT: HIKT .Preet Tay MD, MD Date Time Electronically viewed and signed by .Preet Tay MD, on 03/12/2017 00:52 .T/ CC: DANIE CASTANEDA PA-C PROCEDURES: None. MEDICATIONS GIVEN: Morphine, Zosyn, vancomycin, IV fluids Patient tolerated medication well with no adverse reactions. MEDICAL DECISION MAKING: Patient is a 31-year-old female presents to the ED for concerns of left orbital and cheek swelling 1 day. Patient reports picking at a pimple.. Vital signs were reviewed. Patient is afebrile. Patient was not hypoxic. Physical exam findings revealed significant swelling and erythema to the patient's left cheek and orbital region. Concerns of a facial abscess were noted. Blood work was obtained. WBC count was noted to be 10.2. Hemoglobin was 11.5, hematocrit of 35.5. Lactic acid was noted to be 1.1. CT facial bones with contrast showed Left premaxillary and periorbital facial inflammatory changes likely due to infection. No definite drainable fluid collection is identified although there is likely an area of phlegmonous change. Mild left submandibular adenopathy which is likely reactive. CT brain with contrast showed No acute intracranial hemorrhage, extra-axial fluid collection, or abnormal intracranial enhancement. Patient was given IV fluids, Zosyn and vancomycin. At this time, patient's presentation is most consistent with facial cellulitis. Low suspicion for sepsis. My supervising physician Dr. Pizarro, also examined the patient and agreed that patient would require admission for IV antibiotics. Dr. Pizarro spoke to Dr. Page on the panel team for admission. Patient was stable throughout the ED course. Departure Diagnosis: Primary Impression: Facial cellulitis Condition: Serious DANIE CASTANEDA PA-C Mar 11, 2017 22:40 available. COMPARISON: No pertinent prior examinations were submitted for comparison. FINDINGS: There is extensive soft tissue swelling in the left premaxillary face. No definite drainable fluid collection is seen in the region of the there is a fusiform area of low attenuation extending obliquely from the skin surface to the region of the nasal bones which could represent phlegmon. This measures up to 2 cm in length and 6 mm in diameter. Inflammatory changes extend into the periorbital soft tissues. There are no intraorbital inflammatory changes. There is mild enlargement of the left submandibular lymph nodes. The globes are intact. The extraocular muscles and optic nerve complexes are symmetric and normal in caliber. The paranasal sinuses are well aerated. The visualized portions of the brain are unremarkable. No destructive osseous lesion is identified.There is no acute fracture. IMPRESSION: Left premaxillary and periorbital facial inflammatory changes likely due to infection. No definite drainable fluid collection is identified although there is likely an area of phlegmonous change. Mild left submandibular adenopathy which is likely reactive. RPTAT: HIKT .Preet Tay MD, MD Date Time Electronically viewed and signed by .Preet Tay MD, MD on 03/12/2017 00:52 .T/ CC: DANIE CASTANEDA PA-C PROCEDURES: None. MEDICATIONS GIVEN: Morphine, Zosyn, vancomycin, IV fluids Patient tolerated medication well with no adverse reactions. MEDICAL DECISION MAKING: Patient is a 31-year-old female presents to the ED for concerns of left orbital and cheek swelling 1 day. Patient reports picking at a pimple.. Vital signs were reviewed. Patient is afebrile. Patient was not hypoxic. Physical exam findings revealed significant swelling and erythema to the patient's left cheek and orbital region. Concerns of a facial abscess were noted. Blood work was obtained. WBC count was noted to be 10.2. Hemoglobin was 11.5, hematocrit of 35.5. Lactic acid was noted to be 1.1. CT facial bones with contrast showed Left premaxillary and periorbital facial inflammatory changes likely due to infection. No definite drainable fluid collection is identified although there is likely an area of phlegmonous change. Mild left submandibular adenopathy which is likely reactive. CT brain with contrast showed No acute intracranial hemorrhage, extra-axial fluid collection, or abnormal intracranial enhancement. Patient was given IV fluids, Zosyn and vancomycin. At this time, patient's presentation is most consistent with facial cellulitis. My supervising physician Dr. Pizarro, also examined the patient and agreed that patient would require admission for IV antibiotics. Dr. Pizarro spoke to Dr. Page on the panel team for admission. Departure Diagnosis: Primary Impression: Facial cellulitis Condition: DANIE Salinas PA-C Mar 11, 2017 22:40 instructed the patient to promptly return to the ER for any new or worsening symptoms including increased pain, fever, nausea, vomiting, weakness or LOC. The patient and/or family expressed understanding of and agreement with this plan. All questions were answered. Home care instructions were provided. Departure Diagnosis: Primary Impression: Facial abscess Condition: DANIE Salinas PA-C Mar 11, 2017 22:40
--- NOTE | 2017-03-11 22:48 | QN ---
Documentation Comment My independent concise history is facial swelling to the left face. My pertinent physical exam findings are left-sided facial swelling and redness. The plan is IV antibiotics, incision and drainage, and admission to Dr. Page from the panel team for continued IV antibiotics. At this point I doubt sepsis. AVNI FLORENTINO MD Mar 11, 2017 22:48
[2017-03-11] MEDS ORDERED: ONDANSETRON 4 MG INJ IV PRN ×2 (23:00→23:30)
[2017-03-11] MEDS ORDERED: ACETAMINOPHEN 325 MG TAB PO PRN ×2 (23:00→23:30)
[2017-03-11 23:11] LABS: BASOPHILS % 0.4 % (0.0-2.0); EOSINOPHILS # 0.1 10^3/ul (0.0-0.5); EOSINOPHILS % 0.8 % (0.0-7.0); HEMATOCRIT 35.5 % (37.0-47.0); HEMOGLOBIN 11.5 g/dl (12.0-16.0); LYMPHOCYTES % 19.4 % (15.0-51.0); MEAN CORPUSCULAR HEMOGLOBIN 28.3 pg (29.0-33.0); MEAN CORPUSCULAR HGB CONC 32.4 g/dl (32.0-37.0); MEAN CORPUSCULAR VOLUME 87.2 fl (82.0-101.0); MEAN PLATELET VOLUME 9.6 fl (7.4-10.4); MONOCYTE # 1.2 10^3/ul (0.3-0.9); MONOCYTES % 12.1 % (0.0-11.0); NEUTROPHIL # 6.8 10^3/ul (1.6-7.5); PLATELET COUNT 368 10^3/UL (140-415); RED BLOOD COUNT 4.07 10^6/ul (4.20-5.40); RED CELL DISTRIBUTION WIDTH 14.6 % (11.5-14.5); WHITE BLOOD COUNT 10.2 10^3/ul (4.8-10.8)
[2017-03-11 23:25] LABS: INR 1.17; PT RATIO 1.2
[2017-03-11 23:26] LABS: PARTIAL THROMBOPLASTIN TIME 36.3 Sec (25.0-35.0)
[2017-03-11] MEDS ORDERED: VANCOMYCIN IV PER PHARMACY XX SCH (23:30)
[2017-03-11] MEDS ORDERED: BISACODYL (EC) 5 MG TAB PO PRN (23:30)
[2017-03-11] MEDS ORDERED: NACL 0.9% 3 ML SYG IV SCH (23:30)
[2017-03-11] MEDS ORDERED: DOCUSATE SODIUM 100 MG CAP PO PRN (23:30)
[2017-03-11 23:32] LABS: ALBUMIN 3.7 g/dl (3.3-4.9); ALBUMIN/GLOBULIN RATIO 0.97; BILIRUBIN,INDIRECT 0.4 mg/dl (0-1.1); BILIRUBIN,TOTAL 0.4 mg/dl (0.2-1.3); CALCIUM 9.2 mg/dl (8.4-10.2); CREATININE 0.68 mg/dl (0.44-1.00); POTASSIUM 3.9 mmol/L (3.5-5.1); TOTAL PROTEIN 7.5 g/dl (6.1-8.1)
[2017-03-12] MEDS ORDERED: SOD CHLORIDE 0.9% 100 ML ONE (00:15)
[2017-03-12] MEDS ORDERED: IOHEXOL 300MG/ML 150 ML BTL ONE (00:15)
--- NOTE | 2017-03-12 00:53 | RADRPT ---
PROCEDURE: CT facial bones with contrast. CLINICAL INDICATION: Pain TECHNIQUE: CT of the facial bones was obtained following the intravenous administration of 100 cc Om nipaque 300. Coronal and sagittal re-formations were provided. The administered radiation dose was CTDI vol = 53 mGy, DLP = 1146 mGy-cm. One or more of the following dose reduction techniques were u sed: automated exposure control, adjustment of the mA and/or kV according to patient size and/or use of iterative reconstruction technique. DICOM images are available. COMPARISON: No pertinent prior examinations were submitted for comparison. FINDINGS: There is extensive soft tissue swelling in the left premaxillary face. No definite drainable fluid c ollection is seen in the region of the there is a fusiform area of low attenuation extending oblique ly from the skin surface to the region of the nasal bones which could represent phlegmon. This measu res up to 2 cm in length and 6 mm in diameter. Inflammatory changes extend into the periorbital soft tissues. There are no intraorbital inflammatory changes. There is mild enlargement of the left submandibular lymph nodes. The globes are intact. The extraocular muscles and optic nerve complexes are symmetric and normal in caliber. The paranasal sinuses are well aerated. The visualized portions of the brain are unremarkable. No destructive osseous lesion is identified.There is no acute fracture. IMPRESSION: Left premaxillary and periorbital facial inflammatory changes likely due to infection. No definite d rainable fluid collection is identified although there is likely an area of phlegmonous change. Mild left submandibular adenopathy which is likely reactive. RPTAT: HIKT .Preet Tay MD, MD Date Time Electronically viewed and signed by .Preet Tay MD, on 03/12/2017 00:52 .T/
--- NOTE | 2017-03-12 00:54 | RADRPT ---
PROCEDURE: CT Head with and without contrast. CLINICAL INDICATION: Facial abscess. TECHNIQUE: CT of the head was obtained following the intravenous contrast administration of 100 cc O mnipaque 300 contrast. The administered radiation dose was CTDI vol = 45 mGy, DLP =810mGy-cm. One or more of the following dose reduction techniques were used: automated exposure control, adjustment of the mA and/or kV according to patient size and/or use of iterative reconstruction technique. DI COM images are available. COMPARISON: There are no similar studies submitted for comparison. FINDINGS: There is motion artifact which limits the exam. The ventricles and sulci are within normal limits.There is no abnormal intracranial enhancement.Ther e is no acute intracranial hemorrhage or extra-axial fluid collection.There is no mass effect.No mid line shift is identified.There is no loss of low-white differentiation to suggest acute infarction. No abnormal intracranial enhancement is identified. The calvarium and skull base are grossly intact. Please refer to the CT scan of the facial bones. IMPRESSION: No acute intracranial hemorrhage, extra-axial fluid collection, or abnormal intracranial enhancement .. RPTAT: HIKT .Preet Tay MD, MD Date Time Electronically viewed and signed by .Preet Tay MD, MD on 03/12/2017 00:54 .T/
[2017-03-12 01:24] VITALS: TEMP 98.1
[2017-03-12 03:25] VITALS: Ht 154.9 cm; Wt 47.5 kg
[2017-03-12 03:49] VITALS: BP 112/74; PULSE 86; RESP 20
--- NOTE | 2017-03-12 04:04 | HP ---
Date/Time of Note Date/Time of Note DATE: 03/12/17 TIME: 04:03 Assessment/Plan VTE Prophylaxis VTE Prophylaxis Intervention: SCD's Assessment/Plan Chief Complaint/Hosp Course This is a 31 year female being admitted to the [facility] floor for: #1 left facial cellulitis: No area of drainable collection noted on the CT though there is an area of phlegmonous change. At the current time will continue the patient on vancomycin IV per pharmacy. Will consider consultation with ID for further antibiotic recommendations. She did receive Zosyn in the ED. Zofran for nausea Tylenol for fevers. At the current time she denies any pain however we will provide her with pain control as needed. #2 bipolar disorder: Stable, patient currently is not on any medications, follow -up as outpatient. #3 DVT and GI prophylaxis: SCDs, home ranitidine Further treatment strategy will be implemented as per the clinical course Problems: HPI/ROS Admit Date/Time Admit Date/Time Mar 11, 2017 at 22:47 Hx of Present Illness cc: facial rash, swelling This is a 31-year-old female who presents to the ED for concerns of left eye and cheek swelling 1 day. Patient states she had numerous pimples on her cheek which she has been picking at. Patient states that the swelling and redness surrounding her left orbital region and cheek have been worsening throughout the day. She denies any fevers, chills, nausea, vomiting, chest pain , shortness breath or loss of consciousness. Patient denies any IV drug use. Patient denies any history of diabetes. allergies: diphenydramine meds: see juan antonio ROMERO Const: As per HPI Eyes : No pain discharge or redness or change in visual acuity ENT: No pain, sore throat, congestion, congestion, dysphagia or discharge Respiratory: No shortness of breath, cough, sputum, wheezing, or pleuritic pain Cardiovascular: No chest pain, palpitation, PND, or edema GI : no change in appetite, abdominal pain, nausea, vomiting, diarrhea, constipation, or change in the color his stool Genitourinary: No dysuria, hematuria, flank pain , discharge or CVA tenderness Musculoskeletal: No joint pain, back pain, neck pain, restricted range of motion in neck or joints Skin: As per HPI Neuro: No headache, dizziness, syncope, seizure, focal weakness Endocrine: No polyuria, polydipsia, temperature intolerance Psych: No hallucination, depression, anxiety or suicidal ideation PMH/Family/Social Past Medical History bipolar disorder Past Surgical History Past Surgical Hx: no surgical history Family History Significant Family History: vascular disease Social History Alcohol Use: occasionally Smoking Status: Never smoker Drug Use: none Exam/Review of Systems Vital Signs Vitals Vital Signs Date Time Temp Pulse Resp B/P Pulse Ox O2 Delivery O2 Flow Rate FiO2 03/12/17 01:24 98.1 98 18 106/60 99 Room Air Exam Exam General: Patient is a well-developed female lying in bed in no acute distress HEENT: Left-sided facial swelling and redness at the area below the eye. Mild swelling of the eyelid. No pain on extraocular movement of the eyes. Neck: Supple with full range of motion. No rigidity or meningismus Chest: Nontender Lungs: Clear to auscultation bilaterally no crackles rales or wheezing Heart: Normal S1-S2, Regular rhythm and rate. No murmur, S3, or S4 Abdomen: Soft , nontender, nondistended , bowel sounds are present. No guarding no rebound tenderness , No masses or organomegaly. No costovertebral temporal angle mass Extremities: Normal to inspection, no edema no cyanosis Neurologic: Normal mental status, speech normal, cranial nerves II through XII are intact, motor and sensory are intact, no focal weakness Can: Left facial redness and erythema and warmth noted with extension to partial bridge of the nose. No open wounds or lesions or areas of drainage. Additional Comments PROCEDURE: CT Head with and without contrast. CLINICAL INDICATION: Facial abscess. TECHNIQUE: CT of the head was obtained following the intravenous contrast administration of 100 cc Omnipaque 300 contrast. The administered radiation dose was CTDI vol = 45 mGy, DLP =810mGy-cm. One or more of the following dose reduction techniques were used: automated exposure control, adjustment of the mA and/or kV according to patient size and/or use of iterative reconstruction technique. DICOM images are available. COMPARISON: There are no similar studies submitted for comparison. FINDINGS: There is motion artifact which limits the exam. The ventricles and sulci are within normal limits.There is no abnormal intracranial enhancement.There is no acute intracranial hemorrhage or extra- axial fluid collection.There is no mass effect.No midline shift is identified.There is no loss of low-white differentiation to suggest acute infarction. No abnormal intracranial enhancement is identified. The calvarium and skull base are grossly intact. Please refer to the CT scan of the facial bones. IMPRESSION: No acute intracranial hemorrhage, extra-axial fluid collection, or abnormal intracranial enhancement.. RPTAT: HIKT .Preet Tay MD, Date Time Electronically viewed and signed by .Preet Tay MD, on 03/12/2017 00:54 .T/ CC: DANIE CASTANEDA PA-C PROCEDURE: CT facial bones with contrast. CLINICAL INDICATION: Pain TECHNIQUE: CT of the facial bones was obtained following the intravenous administration of 100 cc Omnipaque 300. Coronal and sagittal re-formations were provided. The administered radiation dose was CTDI vol = 53 mGy, DLP = 1146 mGy-cm. One or more of the following dose reduction techniques were used: automated exposure control, adjustment of the mA and/or kV according to patient size and/or use of iterative reconstruction technique. DICOM images are available. COMPARISON: No pertinent prior examinations were submitted for comparison. FINDINGS: There is extensive soft tissue swelling in the left premaxillary face. No definite drainable fluid collection is seen in the region of the there is a fusiform area of low attenuation extending obliquely from the skin surface to the region of the nasal bones which could represent phlegmon. This measures up to 2 cm in length and 6 mm in diameter. Inflammatory changes extend into the periorbital soft tissues. There are no intraorbital inflammatory changes. There is mild enlargement of the left submandibular lymph nodes. The globes are intact. The extraocular muscles and optic nerve complexes are symmetric and normal in caliber. The paranasal sinuses are well aerated. The visualized portions of the brain are unremarkable. No destructive osseous lesion is identified.There is no acute fracture. IMPRESSION: Left premaxillary and periorbital facial inflammatory changes likely due to infection. No definite drainable fluid collection is identified although there is likely an area of phlegmonous change. Mild left submandibular adenopathy which is likely reactive. RPTAT: HIKT .Preet Tay MD, MD Date Time Electronically viewed and signed by .Preet Tay MD, on 03/12/2017 00:52 .T/ CC: DANIE CASTANEDA PA-C Labs Result Diagram: 03/11/17222903/11/172229 Medications Medications Current Medications Ondansetron HCl (Zofran Inj) 4 mg Q6H PRN IV NAUSEA AND/OR VOMITING; Start at 23:30 Acetaminophen (Tylenol Tab) 650 mg Q6H PRN PO PAIN LEVEL 1-3 OR FEVER; Start 03/11/17 at 23:30 Ibuprofen (Motrin) 600 mg Q6H PRN PO PAIN LEVEL 1-3; Start 03/11/17 at 23:30 Docusate Sodium (Colace) 100 mg Q12H PRN PO CONSTIPATION; Start 03/11/17 at 23 :30 Bisacodyl (Dulcolax) 5 mg DAILY PRN PO CONSTIPATION; Start 03/11/17 at 23:30 IGNACIO NORMAN Mar 12, 2017 04:04
[2017-03-12 06:36] LABS: CHOL/HDL RATIO 2.6 RATIO; MAGNESIUM 1.8 mg/dl (1.7-2.5)
[2017-03-12 06:59] LABS: THYROID STIMULATING HORMONE 1.14 MIU/L (0.465-4.680)
[2017-03-12 07:29] VITALS: BP 111/76; RESP 20
[2017-03-12] MEDS ORDERED: RANITIDINE 150 MG TAB PO PRN (08:00)
[2017-03-12] MEDS: VANCOMYCIN 500MG/NS (PMX) 100 ML IVPB SCH ×3 (08:48→23:23)
--- NOTE | 2017-03-12 11:13 | CONS ---
DATE OF ADMISSION: 03/11/2017 DATE OF CONSULTATION: 03/12/2017 TYPE OF CONSULTATION: Infectious Disease. REASON FOR CONSULTATION: Antibiotic management. HISTORY OF PRESENT ILLNESS: Jennifer Murguia is a 31-year-old female who presented to the emergency r o with left facial cellulitis 1 day's duration, involving the left eye and cheek. She notes that she had numerous pimples on her cheek which she has been picking at. She developed swelling, rednes s around the left orbital region and cheek, which has been worsening throughout the day. She denies any significant pain. Oher problems include bipolar disorder and ALLERGY TO DIPHENHYDRAMINE. PAST MEDICAL HISTORY: Operations as outlined. FAMILY HISTORY: Positive for vascular disease. SOCIAL HISTORY: She does not smoke, drink or abuse drugs. ALLERGIES: DIPHENHYDRAMINE. NONE TO PENICILLIN, SULFA OR FOODS. MEDICATIONS: Per chart. REVIEW OF SYSTEMS: Noncontributory. PHYSICAL EXAMINATION: GENERAL: The patient is a well-developed, well-nourished female in no acute distress. VITAL SIGNS: Stable. She is afebrile. SKIN: Without generalized rash. HEENT: She has left-sided facial swelling and redness in the area below the eye, mild swelling of t he eyelid. No pain on extraocular movement. Mouth without pharyngeal exudate or injection. NECK: Supple. LYMPH NODES: None palpable. CHEST: Decreased breath sounds at the bases. HEART: Without murmur or gallop. ABDOMEN: Soft, nontender, without organosplenomegaly or masses. EXTREMITIES: Without cyanosis, clubbing, or edema. RECTAL AND GENITAL: Deferred. NEUROLOGIC EVALUATION: No focal neurological abnormalities. IMPRESSION AND PLAN: The patient has left facial cellulitis and erythema extending partially to the bridge of the nose. A CT scan of the head was done with IV contrast and there was some motion dawn fact, no acute intracranial hemorrhage. LABORATORY DATA: On admission, her white count was 10.2, hemoglobin and hematocrit 11.5 and 35.5, p latelet count 368,000. BUN and creatinine are 15/0.68. Total protein 7.5, albumin 3.7 and globulin 3.8 for reverse AG ratio. IMAGING: A facial CT shows left premaxillary periorbital facial inflammatory changes, likely due to infection. No definite drainable fluid collection is identified, although there is likely an area of phlegmonous change, mild left submandibular adenopathy which is likely reactive. IMPRESSION The patient was begun on vancomycin. She received 1 dose of Zosyn. One has to be iram rned about the possibility of dermatomal zoster, but I do not see that in this situation. She has f acial cellulitis, probably related to picking of her pimples. We will continue her on this current therapy. I want to thank the hospitalist for asking us to see this maruqita lady in consultation. Dictated By: DOMINIC MIRELES MD, JD/NTS Conf#: [id number] DID#: [id number] CC: IGNACIO NORMAN MD;*End*
--- NOTE | 2017-03-12 11:50 | PN ---
Date/Time of Note Date/Time of Note DATE: 03/12/17 TIME: 11:37 Assessment/Plan VTE Prophylaxis VTE Prophylaxis Intervention: SCD's Lines/Catheters [facility]from [facility]): Saline Lock Assessment/Plan Chief Complaint/Hosp Course 31 yo homeless female with hx of skin infections presenting with pain, redness, swelling and warm of left face started off with a pimple. 1. Left facial cellulitis possibly 2/2 folliculitis. -No area of drainable collection noted on the CT though there is an area of phlegmonous change- we will further delineate it with a soft tissue US. Meanwhile, will let the boil drain itself with local warm compress. -Continue local warm compress to help boil drain itself, pain meds PRN,and IV vancomycin -Obtain wound cultures, MRSA nares. -Follow-up CS. 2.Bipolar disorder: Stable -Patient currently is not on any medications, follow-up as outpatient. 3.Homelessness. -Social service eval. 4.Hx of infected epidermal inclusion cyst, thorax with surgical drainage. Patient was seen in collaboration with . Further treatment strategy will be implemented as per the clinical course Problems: Subjective 24 Hr Interval Summary Free Text/Dictation Lying in bed. Afebrile. having pain on left face. Exam/Review of Systems Vital Signs Vitals Vital Signs Date Time Temp Pulse Resp B/P Pulse Ox O2 Delivery O2 Flow Rate FiO2 03/12/17 07:29 98.8 106 20 111/76 96 03/12/17 03:49 Room Air Intake and Output 03/11/17 03/11/17 03/12/17 15:00 23:00 07:00 Intake Total 400 ml Balance 400 ml Exam General: Thin built, homeless female not in any acute distress . HEENT: Left face with a pustule with surrounding erythema, tenderness, swelling . Normocephalic, Atraumatic, No laceration or hematoma; Eyes: PEERL, Conjunctiva clear, Anicteric sclera Neck: Supple without any lymphadenopathy, nontender, no JVD, no carotid bruits, trachea midline, no thyromegaly Cardiac: S1, S2 auscultated, regular rhythm and rate, no mumurs or gallop Pulmonary: Normal respiratory effort. Chest clear to auscultation bilaterally, no adventitious breath sounds GI: Abdomen normal to inspection. Soft, non- distended, no masses, no rebound tenderness or guarding. Bowel sounds active on all four quadrants Genitourinary: Deferred Extremities: No cyanosis, clubbing, or edema. Pulses [2+] bilaterally. Full ROM on all four extremities. No focal weakness appreciated. Neurologic: Drowsy. Awake/oroentedx2. Skin: Clean,dry, and intact. No ecchymosis, no rashes, or lesions Psych: Labile mood. Results Result Diagram: 03/11/17222903/11/172229 Results 24 hrs Laboratory Tests Test 03/11/17 22:30 03/12/17 00:21 03/12/17 05:24 White Blood Count 10.2 # Red Blood Count 4.07 L Hemoglobin 11.5 L Hematocrit 35.5 L Mean Corpuscular Volume 87.2 Mean Corpuscular Hemoglobin 28.3 L Mean Corpuscular Hemoglobin Concent 32.4 Red Cell Distribution Width 14.6 H Platelet Count 368 Mean Platelet Volume 9.6 Neutrophils % 67.0 Lymphocytes % 19.4 Monocytes % 12.1 H Eosinophils % 0.8 Basophils % 0.4 Nucleated Red Blood Cells % 0.0 Neutrophils # 6.8 Lymphocytes # 2.0 Monocytes # 1.2 H Eosinophils # 0.1 Basophils # 0.0 Nucleated Red Blood Cells # 0.0 Prothrombin Time 15.0 H Prothrombin Time Ratio 1.2 INR International Normalized Ratio 1.17 Activated Partial Thromboplast Time 36.3 H Sodium Level 142 Potassium Level 3.9 Chloride Level 107 Carbon Dioxide Level 27 Anion Gap 12 Blood Urea Nitrogen 15 Creatinine 0.68 Glucose Level 86 Lactic Acid Level 1.1 1.3 1.2 Calcium Level 9.2 Total Bilirubin 0.4 Direct Bilirubin 0.00 Indirect Bilirubin 0.4 Aspartate Amino Transf (AST/SGOT) 24 Alanine Aminotransferase (ALT/SGPT) 26 Alkaline Phosphatase 72 Total Protein 7.5 Albumin 3.7 Globulin 3.80 H Albumin/Globulin Ratio 0.97 Hemoglobin A1c 5.2 Magnesium Level 1.8 Triglycerides Level 34 Cholesterol Level 105 LDL Cholesterol, Calculated 59 HDL Cholesterol 39 Cholesterol/HDL Ratio 2.6 Thyroid Stimulating Hormone (TSH) 1.140 Medications Medications Current Medications Ondansetron HCl (Zofran Inj) 4 mg Q6H PRN IV NAUSEA AND/OR VOMITING; Start at 23:30 Acetaminophen (Tylenol Tab) 650 mg Q6H PRN PO PAIN LEVEL 1-3 OR FEVER; Start 03/11/17 at 23:30 Ibuprofen (Motrin) 600 mg Q6H PRN PO PAIN LEVEL 1-3; Start 03/11/17 at 23:30 Docusate Sodium (Colace) 100 mg Q12H PRN PO CONSTIPATION; Start 03/11/17 at 23 :30 Bisacodyl 5 mg 5 mg DAILY PRN PO CONSTIPATION; Start 03/11/17 at 23:30 Vancomycin HCl (Vancocin) 100 ml @ 100 mls/hr Q8H IVPB Last administered on t 08:48; Admin Dose 100 MLS/HR; Start 03/12/17 at 08:00 Ranitidine HCl (Zantac) 150 mg BID PRN PO EPIGASTRIC PAIN; Start 03/12/17 at 08:00 MARGARITO VILLALBA NP Mar 12, 2017 11:49 MARGARITO VILLALBA NP Mar 12, 2017 11:49
[2017-03-12 13:49] VITALS: BP 115/81; RESP 20
--- NOTE | 2017-03-12 15:59 | RADRPT ---
PROCEDURE: US soft tissue CLINICAL INDICATION: Facial abscess. TECHNIQUE: Multiple low scale and color flow sonographic images of the region of interest were obt ained with a high frequency linear transducer. COMPARISON: CT dated 03/12/2017. FINDINGS: Targeted soft tissue ultrasound in the region of the left maxilla demonstrates a collecti on measuring 1.5 x 0.8 cm with surrounding hyperemia and edema. IMPRESSION: 1. Left maxillary collection measuring 1.5 x 0.8 cm with surrounding hyperemia and edema, suspiciou s for abscess. This is amendable to percutaneous sampling/drainage. RPTAT: HLBP .Rory De Souza MD, MD Date Time Electronically viewed and signed by .Rory De Souza MD, on 03/12/2017 15:58 .P/
[2017-03-12] MEDS: IBUPROFEN 600 MG TAB PO PRN (19:15)
[2017-03-12 19:32] VITALS: BP 132/84; RESP 18
[2017-03-13 02:38] VITALS: BP 115/76; RESP 18
[2017-03-13 07:13] LABS: BASOPHILS % 0.4 % (0.0-2.0); EOSINOPHILS # 0.1 10^3/ul (0.0-0.5); EOSINOPHILS % 1.3 % (0.0-7.0); HEMATOCRIT 37.8 % (37.0-47.0); HEMOGLOBIN 12.2 g/dl (12.0-16.0); LYMPHOCYTES # 1.5 10^3/ul (0.8-2.9); MEAN CORPUSCULAR HEMOGLOBIN 28.4 pg (29.0-33.0); MEAN CORPUSCULAR HGB CONC 32.3 g/dl (32.0-37.0); MEAN CORPUSCULAR VOLUME 88.1 fl (82.0-101.0); MEAN PLATELET VOLUME 9.3 fl (7.4-10.4); MONOCYTE # 0.6 10^3/ul (0.3-0.9); MONOCYTES % 8.4 % (0.0-11.0); NEUTROPHIL # 4.8 10^3/ul (1.6-7.5); NEUTROPHILS % 68.8 % (39.0-77.0); PLATELET COUNT 354 10^3/UL (140-415); RED BLOOD COUNT 4.29 10^6/ul (4.20-5.40); RED CELL DISTRIBUTION WIDTH 14.5 % (11.5-14.5); WHITE BLOOD COUNT 6.9 10^3/ul (4.8-10.8)
[2017-03-13 07:15] VITALS: BP 107/60; RESP 18
[2017-03-13 07:45] LABS: CALCIUM 8.9 mg/dl (8.4-10.2); CREATININE 0.58 mg/dl (0.44-1.00); POTASSIUM 4.2 mmol/L (3.5-5.1)
[2017-03-13] MEDS: IBUPROFEN 600 MG TAB PO PRN (07:58)
[2017-03-13] MEDS: VANCOMYCIN 500MG/NS (PMX) 100 ML IVPB SCH (08:53)
--- NOTE | 2017-03-13 11:09 | PN ---
Date/Time of Note Date/Time of Note DATE: 03/13/17 TIME: 11:07 Assessment/Plan VTE Prophylaxis VTE Prophylaxis Intervention: ambulation Lines/Catheters [facility] Saline Lock Assessment/Plan Chief Complaint/Hosp Course 31 yo homeless female with hx of skin infections presenting with pain, redness, swelling and warm of left face started off with a pimple. 1. Left facial cellulitis possibly 2/2 folliculitis. Soft tissue ultrasound with Left maxillary abscess measuring 1.5 x 0.8 cm. -Requested ENT consultation with who accepted to see patient in-house for I&D of abscess. -Continue local warm compress to help boil drain itself, pain meds PRN,and IV vancomycin -Follow-up wound cultures, MRSA nares. 2.Bipolar disorder: Stable -Patient currently is not on any medications, follow-up as outpatient. 3.Homelessness. -Social service eval. 4.Hx of infected epidermal inclusion cyst, thorax with surgical drainage. Patient was seen in collaboration with . Further treatment strategy will be implemented as per the clinical course Problems: Subjective 24 Hr Interval Summary Free Text/Dictation Patient remains afebrile. Left facial cellulitis with slight improvement in redness. Pain also improved. However, swelling remains there. It has not drained yet. Exam/Review of Systems Vital Signs Vitals Vital Signs Date Time Temp Pulse Resp B/P Pulse Ox O2 Delivery O2 Flow Rate FiO2 03/13/17 07:15 98.5 68 18 107/60 100 03/12/17 03:49 Room Air Intake and Output 03/12/17 03/12/17 03/13/17 15:00 23:00 07:00 Intake Total 1180 ml 400 ml Output Total 0 ml Balance 1180 ml 400 ml Exam General: Thin built, homeless female not in any acute distress . HEENT: Left face with a pustule with surrounding erythema, tenderness, swelling . Normocephalic, Atraumatic, No laceration or hematoma; Eyes: PEERL, Conjunctiva clear, Anicteric sclera Neck: Supple without any lymphadenopathy, nontender, no JVD, no carotid bruits, trachea midline, no thyromegaly Cardiac: S1, S2 auscultated, regular rhythm and rate, no mumurs or gallop Pulmonary: Normal respiratory effort. Chest clear to auscultation bilaterally, no adventitious breath sounds GI: Abdomen normal to inspection. Soft, non- distended, no masses, no rebound tenderness or guarding. Bowel sounds active on all four quadrants Genitourinary: Deferred Extremities: No cyanosis, clubbing, or edema. Pulses [2+] bilaterally. Full ROM on all four extremities. No focal weakness appreciated. Neurologic: Drowsy. Awake/oroentedx2. Skin: Clean,dry, and intact. No ecchymosis, no rashes, or lesions Psych: Labile mood. Results Result Diagram: 03/13/17 0703/13/17 07 Results 24 hrs Laboratory Tests Test 03/13/17 07:02 03/13/17 07:03 Vancomycin Level Trough 5.7 L White Blood Count 6.9 # Red Blood Count 4.29 Hemoglobin 12.2 Hematocrit 37.8 Mean Corpuscular Volume 88.1 Mean Corpuscular Hemoglobin 28.4 L Mean Corpuscular Hemoglobin Concent 32.3 Red Cell Distribution Width 14.5 Platelet Count 354 Mean Platelet Volume 9.3 Neutrophils % 68.8 Lymphocytes % 21.0 Monocytes % 8.4 Eosinophils % 1.3 Basophils % 0.4 Nucleated Red Blood Cells % 0.0 Neutrophils # 4.8 Lymphocytes # 1.5 Monocytes # 0.6 Eosinophils # 0.1 Basophils # 0.0 Nucleated Red Blood Cells # 0.0 Sodium Level 140 Potassium Level 4.2 Chloride Level 107 Carbon Dioxide Level 24 Anion Gap 13 Blood Urea Nitrogen 7 Creatinine 0.58 Glucose Level 101 Calcium Level 8.9 Medications Medications Current Medications Ondansetron HCl (Zofran Inj) 4 mg Q6H PRN IV NAUSEA AND/OR VOMITING; Start at 23:30 Acetaminophen (Tylenol Tab) 650 mg Q6H PRN PO PAIN LEVEL 1-3 OR FEVER; Start 03/11/17 at 23:30 Ibuprofen (Motrin) 600 mg Q6H PRN PO PAIN LEVEL 1-3 Last administered on t 07:58; Admin Dose 600 MG; Start 03/11/17 at 23:30 Docusate Sodium (Colace) 100 mg Q12H PRN PO CONSTIPATION; Start 03/11/17 at 23 :30 Bisacodyl 5 mg 5 mg DAILY PRN PO CONSTIPATION; Start 03/11/17 at 23:30 Vancomycin HCl (Vancocin) 100 ml @ 100 mls/hr Q8H IVPB Last administered on 08:53; Admin Dose 100 MLS/HR; Start 03/12/17 at 08:00 Ranitidine HCl (Zantac) 150 mg BID PRN PO EPIGASTRIC PAIN; Start 03/12/17 at 08:00 MARGARITO VILLALBA NP Mar 13, 2017 11:09
--- NOTE | 2017-03-13 12:40 | PN ---
DATE: 03/13/2017 SUBJECTIVE: No events overnight. Patient is alert, looks comfortable, no fevers, complaining of le ft facial pain. LABORATORIES: WBC 6.9, no shift, no bands. BUN 7, creatinine 0.58. ANTIMICROBIALS: The patient is on IV vancomycin. PHYSICAL EXAMINATION: GENERAL: Well-developed, middle-aged woman who is alert, in no distress. HEENT: Head atraumatic, normocephalic. Sclerae anicteric the patient has significant swelling and erythema on her left side of the face with periorbital edema. NECK: Supple. CHEST: Rise symmetrical. Breath sounds clear. HEART: S1, S2. ABDOMEN: Soft. Bowel tones present. ASSESSMENT: 1. Left facial cellulitis with an evidence of fluid collection at the maxillary area per ultrasound . 2. Homelessness. 3. Bipolar disorder. PLAN: The patient remains stable. Continue antibiotics. Await ENT evaluation for possible abscess . Dictated By: NIKI LLOYD [employer] for DOMINIC MIRELES MD NI/NTS Conf#: [id number] DID#: [id number] CC: IGNACIO NORMAN MD;*EndCC*
[2017-03-13 14:20] VITALS: BP 121/66; RESP 18
[2017-03-13] MEDS: VANCOMYCIN 1 GM in NS 250 ML IVPB SCH (17:15)
[2017-03-13 19:34] VITALS: BP 123/73; RESP 20
[2017-03-14] MEDS: VANCOMYCIN 1 GM in NS 250 ML IVPB SCH ×3 (00:36→17:27)
[2017-03-14 02:00] VITALS: BP 112/69; RESP 20
[2017-03-14] MEDS ORDERED: LIDOCAINE 1%/EPI 30 ML INJ INJ ONE (06:06)
[2017-03-14 06:24] LABS: BASOPHIL # 0.1 10^3/ul (0.0-0.1); BASOPHILS % 0.8 % (0.0-2.0); EOSINOPHILS # 0.1 10^3/ul (0.0-0.5); EOSINOPHILS % 1.7 % (0.0-7.0); HEMATOCRIT 37.4 % (37.0-47.0); LYMPHOCYTES # 1.6 10^3/ul (0.8-2.9); LYMPHOCYTES % 24.1 % (15.0-51.0); MEAN CORPUSCULAR HGB CONC 32.1 g/dl (32.0-37.0); MEAN CORPUSCULAR VOLUME 87.4 fl (82.0-101.0); MEAN PLATELET VOLUME 9.6 fl (7.4-10.4); MONOCYTE # 0.6 10^3/ul (0.3-0.9); MONOCYTES % 9.4 % (0.0-11.0); NEUTROPHIL # 4.2 10^3/ul (1.6-7.5); NEUTROPHILS % 63.7 % (39.0-77.0); PLATELET COUNT 405 10^3/UL (140-415); RED BLOOD COUNT 4.28 10^6/ul (4.20-5.40); RED CELL DISTRIBUTION WIDTH 14.4 % (11.5-14.5); WHITE BLOOD COUNT 6.6 10^3/ul (4.8-10.8)
--- NOTE | 2017-03-14 06:40 | CONS ---
Date/Time of Note Date/Time of Note DATE: 03/14/17 TIME: 06:36 Assessment/Plan Assessment/Plan Additional Assessment/Plan Left facial abscess s/p I&D. Continue antibiotics. Plan to remove drain tomorrow. Can likely d/c home thereafter with oral abx. Consultation Date/Type/Reason Admit Date/Time Mar 11, 2017 at 22:47 Date of Consultation: Mar 14, 2017 Type of Consultation: ENT Reason for Consultation Abscess Hx of Present Illness 3 days of progressive left facial swelling and pain. Not improving with antibiotics. Constitutional: improved, no complaints Eyes: no complaints Respiratory: no complaints Cardiovascular: no complaints Gastrointestinal: no complaints Musculoskeletal: no complaints Past Surgical History Past Surgical Hx: no surgical history Social History Alcohol Use: occasionally Smoking Status: Never smoker Drug Use: none Exam/Review of Systems Vital Signs Vitals Vital Signs Date Time Temp Pulse Resp B/P Pulse Ox O2 Delivery O2 Flow Rate FiO2 03/14/17 02:00 98.4 77 20 112/69 98 03/12/17 03:49 Room Air Intake and Output 03/13/17 03/13/17 03/14/17 14:59 22:59 06:59 Intake Total 100 ml 600 ml 250 ml Balance 100 ml 600 ml 250 ml Exam ENMT: other (I&D performed of left facial abscess. Lidocaine injected. Area prepped. 8 mm incision made within RSTL overlying abscess. ~10 cc of pus expressed. Cavity irrigated with saline. Emi drain placed.) Results Result Diagram: 03/14/17 0514 03/13/17 0703 Results 24 hrs Laboratory Tests Test 03/13/17 07:02 03/13/17 07:03 03/14/17 05:14 Vancomycin Level Trough 5.7 L White Blood Count 6.9 # 6.6 Red Blood Count 4.29 4.28 Hemoglobin 12.2 12.0 Hematocrit 37.8 37.4 Mean Corpuscular Volume 88.1 87.4 Mean Corpuscular Hemoglobin 28.4 L 28.0 L Mean Corpuscular Hemoglobin Concent 32.3 32.1 Red Cell Distribution Width 14.5 14.4 Platelet Count 354 405 Mean Platelet Volume 9.3 9.6 Neutrophils % 68.8 63.7 Lymphocytes % 21.0 24.1 Monocytes % 8.4 9.4 Eosinophils % 1.3 1.7 Basophils % 0.4 0.8 Nucleated Red Blood Cells % 0.0 0.0 Neutrophils # 4.8 4.2 Lymphocytes # 1.5 1.6 Monocytes # 0.6 0.6 Eosinophils # 0.1 0.1 Basophils # 0.0 0.1 Nucleated Red Blood Cells # 0.0 0.0 Sodium Level 140 Potassium Level 4.2 Chloride Level 107 Carbon Dioxide Level 24 Anion Gap 13 Blood Urea Nitrogen 7 Creatinine 0.58 Glucose Level 101 Calcium Level 8.9 Medications Medications Current Medications Ondansetron HCl (Zofran Inj) 4 mg Q6H PRN IV NAUSEA AND/OR VOMITING; Start at 23:30 Acetaminophen (Tylenol Tab) 650 mg Q6H PRN PO PAIN LEVEL 1-3 OR FEVER; Start 03/11/17 at 23:30 Ibuprofen (Motrin) 600 mg Q6H PRN PO PAIN LEVEL 1-3 Last administered on 07:58; Admin Dose 600 MG; Start 03/11/17 at 23:30 Docusate Sodium (Colace) 100 mg Q12H PRN PO CONSTIPATION; Start 03/11/17 at 23 :30 Bisacodyl (Dulcolax) 5 mg DAILY PRN PO CONSTIPATION; Start 03/11/17 at 23:30 Ranitidine HCl 150 mg 150 mg BID PRN PO EPIGASTRIC PAIN; Start 03/12/17 at 08: 00 Vancomycin HCl (Vancocin) 250 ml @ 125 mls/hr Q8H IVPB Last administered on 00:36; Admin Dose 125 MLS/HR; Start 03/13/17 at 17:00 Miscellaneous Information (*Rx Drug Level Order Reminder*) VANCO TROUGH @ 1, 600 ON ... ONCE ONCE XX ; Start 03/14/17 at 16:00; Stop 03/14/17 at 16:01 JAMIE GRIJALVA MD Mar 14, 2017 06:39
[2017-03-14 07:03] LABS: CALCIUM 8.8 mg/dl (8.4-10.2); CREATININE 0.65 mg/dl (0.44-1.00); POTASSIUM 4.2 mmol/L (3.5-5.1)
[2017-03-14 07:32] VITALS: BP 126/87; RESP 16
--- NOTE | 2017-03-14 10:25 | PN ---
Date/Time of Note Date/Time of Note DATE: 03/14/17 TIME: 10:22 Assessment/Plan VTE Prophylaxis VTE Prophylaxis Intervention: ambulation Lines/Catheters [facility] Saline [place] Assessment/Plan Chief Complaint/Hosp Course 31 yo homeless female with hx of skin infections presenting with pain, redness, swelling and warm of left face started off with a pimple. 1. Left facial cellulitis with abscess formation -Expert care of ENT, appreciated. Patient is status post IND of abscess with Emi drain placed on 03/14/2017. -Continue IV antibiotics, PRN pain medications. -Follow-up final cultures. 2.Bipolar disorder: Stable -Patient currently is not on any medications, follow-up as outpatient. 3.Homelessness. -Social service eval. 4.Hx of infected epidermal inclusion cyst, thorax with surgical drainage. Plan: Patient is status post incision and drainage of left maxillary abscess with [place] drain placed. The plan is to remove [place] drain tomorrow unless it falls off by its own. Discharge planning in next 24 hours on oral antibiotics per ENT recommendations. Patient was seen in collaboration with . Problems: Subjective 24 Hr Interval Summary Free Text/Dictation Patient is status post I&D left facial abscess with placement of [place] drain. She is afebrile. Pain is minimal. Tolerating diet and activities. Exam/Review of Systems Vital Signs Vitals Vital Signs Date Time Temp Pulse Resp B/P Pulse Ox O2 Delivery O2 Flow Rate FiO2 03/14/17 07:32 98.4 68 16 126/87 99 03/12/17 03:49 Room Air Intake and Output 03/13/17 03/13/17 03/14/17 14:59 22:59 06:59 Intake Total 100 ml 600 ml 250 ml Balance 100 ml 600 ml 250 ml Exam General: Thin built, homeless female not in any acute distress . HEENT: Left face status post I&D of abscess with [place] drain in place. Normocephalic, Atraumatic, No laceration or hematoma; Eyes: PEERL, Conjunctiva clear, Anicteric sclera Neck: Supple without any lymphadenopathy, nontender, no JVD, no carotid bruits, trachea midline, no thyromegaly Cardiac: S1, S2 auscultated, regular rhythm and rate, no mumurs or gallop Pulmonary: Normal respiratory effort. Chest clear to auscultation bilaterally, no adventitious breath sounds GI: Abdomen normal to inspection. Soft, non- distended, no masses, no rebound tenderness or guarding. Bowel sounds active on all four quadrants Genitourinary: Deferred Extremities: No cyanosis, clubbing, or edema. Pulses [2+] bilaterally. Full ROM on all four extremities. No focal weakness appreciated. Neurologic: Alert oriented 4. Normal affect. Intact sensation. Skin: Clean,dry, and intact. No ecchymosis, no rashes, or lesions Psych: Labile mood. Results Result Diagram: 03/14/1714 03/14/1714 Results 24 hrs Laboratory Tests Test 03/14/17 05:14 White Blood Count 6.6 Red Blood Count 4.28 Hemoglobin 12.0 Hematocrit 37.4 Mean Corpuscular Volume 87.4 Mean Corpuscular Hemoglobin 28.0 L Mean Corpuscular Hemoglobin Concent 32.1 Red Cell Distribution Width 14.4 Platelet Count 405 Mean Platelet Volume 9.6 Neutrophils % 63.7 Lymphocytes % 24.1 Monocytes % 9.4 Eosinophils % 1.7 Basophils % 0.8 Nucleated Red Blood Cells % 0.0 Neutrophils # 4.2 Lymphocytes # 1.6 Monocytes # 0.6 Eosinophils # 0.1 Basophils # 0.1 Nucleated Red Blood Cells # 0.0 Sodium Level 140 Potassium Level 4.2 Chloride Level 106 Carbon Dioxide Level 24 Anion Gap 14 Blood Urea Nitrogen 10 Creatinine 0.65 Glucose Level 99 Calcium Level 8.8 Medications Medications Current Medications Ondansetron HCl (Zofran Inj) 4 mg Q6H PRN IV NAUSEA AND/OR VOMITING; Start at 23:30 Acetaminophen (Tylenol Tab) 650 mg Q6H PRN PO PAIN LEVEL 1-3 OR FEVER; Start 03/11/17 at 23:30 Ibuprofen (Motrin) 600 mg Q6H PRN PO PAIN LEVEL 1-3 Last administered on t 07:58; Admin Dose 600 MG; Start 03/11/17 at 23:30 Docusate Sodium (Colace) 100 mg Q12H PRN PO CONSTIPATION; Start 03/11/17 at 23 :30 Bisacodyl (Dulcolax) 5 mg DAILY PRN PO CONSTIPATION; Start 03/11/17 at 23:30 Ranitidine HCl 150 mg 150 mg BID PRN PO EPIGASTRIC PAIN; Start 03/12/17 at 08: 00 Vancomycin HCl (Vancocin) 250 ml @ 125 mls/hr Q8H IVPB Last administered on t 09:16; Admin Dose 125 MLS/HR; Start 03/13/17 at 17:00 Miscellaneous Information (*Rx Drug Level Order Reminder*) VANCO TROUGH @ 1, 600 ON ... ONCE ONCE XX ; Start 03/14/17 at 16:00; Stop 03/14/17 at 16:01 MARGARITO VILLALBA NP Mar 14, 2017 10:25
[2017-03-14 13:19] VITALS: BP 110/70; RESP 16
--- NOTE | 2017-03-14 14:42 | PN ---
DATE: 03/14/2017 SUBJECTIVE: No events overnight. The patient is awake, looks comfortable, left facial dressing int act. No fevers. LABORATORY DATA: WBC 6.6, no shift, no bands. BUN 10, creatinine 0.65. MICROBIOLOGY: Wound cultures pending. ANTIMICROBIALS: The patient is on IV vancomycin. PHYSICAL EXAMINATION: GENERAL: Well-developed, middle-aged white woman who is in no distress. HEENT: Head atraumatic, normocephalic. Sclerae anicteric. Buccal mucosa pink. NECK: Supple. CHEST: Rise symmetrical. Breath sounds clear. HEART: S1, S2. ABDOMEN: Soft, bowel sounds present. EXTREMITIES: Without cyanosis. ASSESSMENT 1. Status post left facial abscess incision and drainage. 2. Homelessness. 3. Bipolar disorder per report. PLAN: Remains stable. Continue on current antibiotics. Await for intraoperative cultures. Follow ears, nose, and throat evaluation. Anticipate discharge on oral antibiotics once medically cleared . Dictated By: NIKI LLOYD SENIOR PROCESS ANALYST for DOMINIC MIRELES MD NI/NTS Conf#: [id number] DID#: [id number] CC: IGNACIO NORMAN MD; JAMIE GRIJALVA MD;*EndCC*
[2017-03-14 19:20] VITALS: BP 111/70; RESP 20
[2017-03-15] MEDS: VANCOMYCIN 1 GM in NS 250 ML IVPB SCH ×2 (00:59→08:16)
[2017-03-15 02:38] VITALS: BP 115/65; RESP 20
[2017-03-15 07:19] VITALS: BP 126/78; RESP 20
--- NOTE | 2017-03-15 07:43 | CONS ---
Date/Time of Note Date/Time of Note DATE: 03/15/17 TIME: 07:41 Assessment/Plan Assessment/Plan Chief Complaint/Hosp Course 3 days of progressive left facial swelling and pain. Not improving with antibiotics. Problems: Additional Assessment/Plan POD#1 s/p I&D of left facial abscess. Drain removed today. Continue IV abx. If continues to improve, OK for discharge with oral abx tomorrow. Consultation Date/Type/Reason Admit Date/Time Mar 11, 2017 at 22:47 Initial Consult Date 03/14/17 Type of Consultation: ENT 24 HR Interval Summary Free Text/Dictation Pain significantly improved Exam/Review of Systems Vital Signs Vitals Vital Signs Date Time Temp Pulse Resp B/P Pulse Ox O2 Delivery O2 Flow Rate FiO2 03/15/17 07:19 98.0 92 20 126/78 98 03/12/17 03:49 Room Air Intake and Output 03/14/17 03/14/17 03/15/17 15:00 23:00 07:00 Intake Total 730 ml 1310 ml 850 ml Output Total 1100 ml Balance 730 ml 210 ml 850 ml Exam ENMT: other ([place] removed. Improved periorbital edema. Still with moderate erythema, edema and induration. ) Results Result Diagram: 03/14/17 0514 03/14/17 0514 Results 24 hrs Laboratory Tests Test 03/14/17 16:04 Vancomycin Level Trough 11.7 Medications Medications Current Medications Ondansetron HCl (Zofran Inj) 4 mg Q6H PRN IV NAUSEA AND/OR VOMITING; Start at 23:30 Acetaminophen (Tylenol Tab) 650 mg Q6H PRN PO PAIN LEVEL 1-3 OR FEVER; Start 03/11/17 at 23:30 Ibuprofen (Motrin) 600 mg Q6H PRN PO PAIN LEVEL 1-3 Last administered on t 07:58; Admin Dose 600 MG; Start 03/11/17 at 23:30 Docusate Sodium (Colace) 100 mg Q12H PRN PO CONSTIPATION; Start 03/11/17 at 23 :30 Bisacodyl (Dulcolax) 5 mg DAILY PRN PO CONSTIPATION; Start 03/11/17 at 23:30 Ranitidine HCl 150 mg 150 mg BID PRN PO EPIGASTRIC PAIN; Start 11/14/17 at 08: 00 Vancomycin HCl (Vancocin) 250 ml @ 125 mls/hr Q8H IVPB Last administered on t 00:59; Admin Dose 125 MLS/HR; Start 03/13/17 at 17:00 JAMIE GRIJALVA MD Mar 15, 2017 07:43
--- NOTE | 2017-03-15 11:46 | PN ---
Date/Time of Note Date/Time of Note DATE: 03/15/17 TIME: 11:44 Assessment/Plan VTE Prophylaxis VTE Prophylaxis Intervention: ambulation Lines/Catheters IV [facility]from [facility] [place] Assessment/Plan Chief Complaint/Hosp Course 31 yo homeless female with hx of skin infections presenting with pain, redness, swelling and warm of left face started off with a pimple. 1. Left facial cellulitis with abscess formation -Expert care of ENT, appreciated. Patient is status post I&D of abscess with Emi drain placed on 03/14/2017. [place] drain removed today on 03/15/2017. -Continue IV antibiotics, PRN pain medications. -Follow-up final cultures. 2.Bipolar disorder: Stable -Patient currently is not on any medications, follow-up as outpatient. 3.Homelessness. -Social service eval. 4.Hx of infected epidermal inclusion cyst, thorax with surgical drainage. Plan: Patient is status post incision and drainage of left maxillary abscess with [place] drain placed which is now remote. As per ENT recommendation, plan is to discharge patient in a.m. on oral antibiotics. Will defer antibiotic choice to ID colleagues. Patient was seen in collaboration with . Problems: Subjective 24 Hr Interval Summary Free Text/Dictation Doing well. Remains afebrile. This morning, patient had drain removed from left facial I&D site. Exam/Review of Systems Vital Signs Vitals Vital Signs Date Time Temp Pulse Resp B/P Pulse Ox O2 Delivery O2 Flow Rate FiO2 03/15/17 07:19 98.0 92 20 126/78 98 03/12/17 03:49 Room Air Intake and Output 03/14/17 03/14/17 03/15/17 15:00 23:00 07:00 Intake Total 730 ml 1310 ml 850 ml Output Total 1100 ml Balance 730 ml 210 ml 850 ml Exam General: Thin built, homeless female not in any acute distress . HEENT: Left face status post I&D of abscess. Today drain removed. Normocephalic , Atraumatic, No laceration or hematoma; Eyes: PEERL, Conjunctiva clear, Anicteric sclera Neck: Supple without any lymphadenopathy, nontender, no JVD, no carotid bruits, trachea midline, no thyromegaly Cardiac: S1, S2 auscultated, regular rhythm and rate, no mumurs or gallop Pulmonary: Normal respiratory effort. Chest clear to auscultation bilaterally, no adventitious breath sounds GI: Abdomen normal to inspection. Soft, non- distended, no masses, no rebound tenderness or guarding. Bowel sounds active on all four quadrants Genitourinary: Deferred Extremities: No cyanosis, clubbing, or edema. Pulses [2+] bilaterally. Full ROM on all four extremities. No focal weakness appreciated. Neurologic: Alert oriented 4. Normal affect. Intact sensation. Skin: Clean,dry, and intact. No ecchymosis, no rashes, or lesions Results Result Diagram: 03/14/1714 03/14/17513 Results 24 hrs Laboratory Tests Test 03/14/17 16:04 Vancomycin Level Trough 11.7 Medications Medications Current Medications Ondansetron HCl (Zofran Inj) 4 mg Q6H PRN IV NAUSEA AND/OR VOMITING; Start at 23:30 Acetaminophen (Tylenol Tab) 650 mg Q6H PRN PO PAIN LEVEL 1-3 OR FEVER; Start 03/11/17 at 23:30 Ibuprofen (Motrin) 600 mg Q6H PRN PO PAIN LEVEL 1-3 Last administered on 07:58; Admin Dose 600 MG; Start 03/11/17 at 23:30 Docusate Sodium (Colace) 100 mg Q12H PRN PO CONSTIPATION; Start 03/11/17 at 23 :30 Bisacodyl (Dulcolax) 5 mg DAILY PRN PO CONSTIPATION; Start 03/11/17 at 23:30 Ranitidine HCl 150 mg 150 mg BID PRN PO EPIGASTRIC PAIN; Start 03/12/17 at 08: 00 Vancomycin HCl (Vancocin) 250 ml @ 125 mls/hr Q8H IVPB Last administered on 08:16; Admin Dose 125 MLS/HR; Start 03/13/17 at 17:00 MARGARITO VILLALBA NP Mar 15, 2017 11:46
--- NOTE | 2017-03-15 15:14 | DS ---
Date/Time of Note Date/Time of Note DATE: 03/15/17 TIME: 15:07 Discharge Summary Admission/Discharge Info Admit Date/Time Mar 11, 2017 at 22:47 Discharge Date/Time Mar 15, 2017 at 13:30 Discharge Diagnosis 1. Left facial cellulitis with abscess formation . Patient is status post IND of abscess 2.Bipolar disorder 3.Homelessness. 4.Hx of infected epidermal inclusion cyst, thorax with surgical drainage. Patient Condition: Stable Consults Dr. Zelaya, ID Dr. Silva, ENT Procedures 03/14/2017. Incision and drainage of left facial abscess and placement of [place] drain. 03/15/2017. Discontinuation of [place] drain. Hospital Course This is a 31-year-old homeless female with a past medical history of bipolar disorder for which she is not on any treatment, history of infected epidermal inclusion cyst of thorax with surgical drainage in the past, presented to the emergency room with complaints of pain, redness, swelling of left face started off with a pimple. Patient did not have any leukocytosis or fever upon presentation. She was admitted. A CT of the face did not reveal any area of drainable collection. Patient was continued on broad-spectrum IV antibiotics, pain medications, local warm compress. Cultures were drawn. A soft tissue ultrasound showed left maxillary abscess measuring 1.50.8 cm. ENT consultation requested. On 03/14/2017, patient was evaluated by on 03/14/2017, patient had undergone incision and drainage of left maxillary abscess. Recommendation was to continue IV antibiotics. A [place] drain also was placed during incision and drainage which was removed the next day on 03/15/2017. At this time as per ENT, recommendation was to keep patient under the 24 hours on IV antibiotics and possibly discharge her in the morning on oral antibiotics. As she was doing excellent progress, on 03/15/2017 approximately at 1:30 PM, patient was not seen in the room. As per nursing staff, it is noted that patient had eloped from the hospital. Please not that patient had social work therapist evaluation and was provided with all the resources and shelters. As patient was allowed, a discharge planning was not done. Patient was not provided with any prescription. As per nursing staff, but it appears like patient removed her IV by self and kept in the room. Please note that this patient left hospital prior to completion of antibiotic course and without any further prescriptions. Her chances of having risks including severe sepsis is at very high up on elopement. Patient is seen in collaboration with Dr. Morales. Home Meds Active Scripts Ranitidine Hcl* (Zantac*) 150 Mg Tablet, 150 MG PO BID Y for EPIGASTRIC PAIN, # 30 TAB Prov:MYAH ERICKSON 02/20/17 Primary Care Provider Care Physician No Primary Pending Labs Laboratory Tests Test 03/14/17 16:04 Vancomycin Level Trough 11.7ug/ml (10.0-20.0) MARGARITO VILLALBA V. ASSISTANT PRINCIPAL Mar 15, 2017 15:14
--- NOTE | 2017-03-16 04:52 | PN ---
DATE: 03/15/2017 SUBJECTIVE: No events overnight. The patient is alert, feels better, looks comfortable, wound cult ure growing Staphylococcus aureus preliminary. Facial erythema and edema is much better. PHYSICAL EXAMINATION: GENERAL: Well-developed, middle-aged white woman who is awake, in no distress. HEENT: Head atraumatic, normocephalic. NECK: Supple. CHEST: Rise symmetrical. Breath sounds clear. HEART: S1, S2. ABDOMEN: Soft. Bowel tones present. ASSESSMENT: 1. Facial cellulitis with abscess, status post incision and drainage. Final cultures pending. 2. Homelessness. PLAN: The patient remains stable. We will keep her on IV vancomycin for now, await for final cultu res. Anticipate discharge on oral antibiotics once cultures finalize and the patient is clinically improved. Follow ENT recommendations. Dictated By: NIKI LLOYD MULTIMEDIA AUTHORING SPECIALIST for DOMINIC MIRELES MD NI/NTS Conf#: [id number] DID#: [id number] CC: IGNACIO NORMAN MD; JAMIE GRIJALVA MD;*EndCC*
== END 2017-03-15 13:30 | disposition left against medical advice (07) | DRG 603 ==
LOC: FTE 19:42 → MS2 22:47
PROVIDERS: ADMIT Family Medicine; ATTEND Family Medicine
PROC: 0H91X0Z Drainage of Face Skin with Drainage Device, External Approach (ICD-10-PCS; principal; 2017-03-14)
DX: L03.211 Cellulitis of face (principal); L02.01 Cutaneous abscess of face; F31.9 Bipolar disorder, unspecified; Z53.21 Procedure and treatment not carried out due to patient leaving prior to being seen by health care provider; R23.8 Other skin changes; Z59.0 Homelessness; Z87.2 Personal history of diseases of the skin and subcutaneous tissue
CPT/HCPCS: 36415; 70460; 70486; 76536; 80048; 80053; 80061; 80202; 83036; 83605; 83735; 84443; 85025; 85610; 85730; 87040; 87070; 87075; 87081; 93005; 96365; 96366; 96368; 96375; J2270; J2543; J3370; J7030; Q9967

== ENCOUNTER 2017-06-10 07:41 | Emergency (ER) | END 2017-06-10 09:07 | disposition home or self-care (01) ==

== ENCOUNTER 2017-08-16 21:13 | Emergency (ER) | END 2017-08-16 21:54 | disposition home or self-care (01) ==

== ENCOUNTER 2017-09-29 13:03 | Emergency (ER) | END 2017-09-29 13:14 | disposition home or self-care (01) ==

== ENCOUNTER 2018-05-15 09:48 | Emergency (ER) | payer MEDICARE, OTHER ==
[~2018-05-15] VITALS: Wt 90.0 kg
[~2018-05-15 09:48] MED LIST changes: +CEPH-443 PO; +RANI150T35 PO; -RANI150T9 PO; +SULF1TAB31 PO
--- NOTE | 2018-05-15 11:29 | ERD ---
ER Documentation Chief Complaint Chief Complaint CONSTIPATION, AP HPI This is a 32-year-old female with a history of amphetamine abuse. The patient indicated she had utilized crystal meth prior to arrival. She states for 1 week she has been constipated. She had a small pebble-like stools and is passing flatulence. She denies any emesis. She denies a headache. The patient also indicates that contrary to the triage note she is not experiencing abdominal pain but stated she believes a crystal meth pipe was inserted into her rectum by a friend just prior to arrival. She denies any suicidal homicidal thoughts or ideations. Again contrary to the triage note she denies any abdominal pain. She is no chest pain. She has no shortness of breath at rest or exertion. ROS All systems reviewed and are negative except as per history of present illness. Medications Home Meds Discontinued Scripts Sulfamethoxazole/Trimethoprim* (Bactrim Ds* Tablet) 1 Each Tablet, 1 TAB PO BID, #10 TAB Prov:LYDIA CASTAÑEDA PA-C 06/10/17 Cephalexin* (Keflex*) 500 Mg Capsule, 500 MG PO QID for 5 Days, CAP Prov:LYDIA CASTAÑEDA PA-C 06/10/17 Ranitidine Hcl* (Zantac*) 150 Mg Tablet, 150 MG PO BID PRN for EPIGASTRIC PAIN, #30 TAB Prov:MYAH ERICKSON 02/20/17 Allergies Allergies: Coded Allergies: diphenhydramine (Verified Allergy, Unknown, 02/18/17) PMhx/Soc History of Surgery: No Anesthesia Reaction: No Hx Neurological Disorder: No Hx Respiratory Disorders: No Hx Cardiac Disorders: No Hx Psychiatric Problems: No Hx Miscellaneous Medical Probl: No Hx Alcohol Use: No Hx Substance Use: No Hx Tobacco Use: No Smoking Status: Never smoker Physical Exam Vitals Vital Signs Date Temp Pulse Resp B/P (MAP) Pulse Ox O2 O2 Flow FiO2 Time Delivery Rate 05/15/18 98.3 99 18 130/74 99 09:49 (92) Physical Exam Constitutional:Well-developed. Well-nourished. HEENT:Normocephalic. Atraumatic.Pupils were 5 mm equal round reactive to light. Moist mucous membranes.No tonsillar exudates. Neck: No nuchal rigidity. No lymphadenopathy. No posterior cervical spine tenderness or step-offs. Respiratory: Not using accessory muscles of respiration.Lungs were clear to auscultation bilaterally. No rhonchi. No rales. No wheezing. Cardiovascular: Regular rate regular rhythm.No murmurs. No rubs were appreciated.S1, S2 normal. Distal pulses are palpable 2+ bilaterally. GI: Abdomen was soft. Nontender. Non Distended. No pulsatile abdominal masses or bruits. No rebound. No guarding. Bowel sounds were present and normal. RECTAL: Rectal exam performed by myself with female nurse clinical reviewer present. There is no evidence of palpable foreign body. No rectal bleeding. Muscle skeletal: Full range of motion of both the upper and lower extremities bilaterally.Normal muscle tone.No assymetrical calf tenderness or swelling. Skin: No petechia, no purpura. No lesions on the palms or the soles of the feet. No maculopapular rash. NEURO: Patient was alert, awake, orientated x3.No facial droop. Gait observed and normal with no ataxia.Speech had regular rate and rhythm. No focal neuro logical deficits. Result Diagram: 05/15/18 1105 Results 24 hrs Laboratory Tests Test 05/15/18 10:43 05/15/18 10:45 05/15/18 11:05 Bedside Urine pH (LAB) 6.0 Bedside Urine Protein (LAB) 1+ Bedside Urine Glucose (UA) Negative Bedside Urine Ketones (LAB) 1+ Bedside Urine Blood Negative Bedside Urine Nitrite (LAB) Negative Bedside Urine Leukocyte Esterase Negative (L POC Beta HCG, Qualitative NEGATIVE White Blood Count 5.3 10^3/ul Red Blood Count 4.43 10^6/ul Hemoglobin 11.2 g/dl Hematocrit 35.2 % Mean Corpuscular Volume 79.5 fl Mean Corpuscular Hemoglobin 25.3 pg Mean Corpuscular 31.8 g/dl Hemoglobin Concent Red Cell Distribution Width 17.9 % Platelet Count 383 10^3/UL Mean Platelet Volume 9.5 fl Immature Granulocytes % 0.200 % Neutrophils % 59.9 % Lymphocytes % 25.8 % Monocytes % 13.1 % Eosinophils % 0.4 % Basophils % 0.6 % Nucleated Red Blood Cells % 0.0 /100WBC Immature Granulocytes # 0.010 10^3/ul Neutrophils # 3.2 10^3/ul Lymphocytes # 1.4 10^3/ul Monocytes # 0.7 10^3/ul Eosinophils # 0.0 10^3/ul Basophils # 0.0 10^3/ul Nucleated Red Blood Cells # 0.0 10^3/ul Urine Color ELLIE Urine Clarity SLIGHTLY CLOUDY Urine pH 5.0 Urine Specific [place] 1.031 Urine Ketones 1+ mg/dL Urine Nitrite NEGATIVE mg/dL Urine Bilirubin 1+ mg/dL Urine Urobilinogen 2+ mg/dL Urine Leukocyte Esterase NEGATIVE Marielena/ul Urine Microscopic RBC 2 /HPF Urine Microscopic WBC 4 /HPF Urine Squamous Epithelial Cells FEW /HPF Urine Bacteria FEW /HPF Urine Mucus MANY /HPF Urine Hemoglobin NEGATIVE mg/dL Urine Glucose NEGATIVE mg/dL Urine Total Protein 1+ mg/dl Current Medications Medications Dose Sig/Brii Start Time Status Last (Trade) Ordered Route PRN Stop Time Admin Dose Reason Admin Magnesium 30 ml ONCE ONCE 05/15/18 Hydroxide PO 11:30 (Milk Of Mag) 05/15/18 11:31 Procedures/MDM This is a 32-year-old female presented to the emergency department with a possible rectal foreign body. A KUB radiograph is been ordered and reviewed by myself and the patient did not have any foreign body present. There is no signs of perforation or small bowel obstruction. The patient has significant amount of stool present within the colon. She was treated for constipation given milk of magnesium and sent home with stool softeners. The patient was discharged home in fair condition. They were instructed to return to the emergency department at any time if there was any worsening of their condition. The patient stated they would follow up with their PCP in the next 24-48 hours to initiate a suitable medication regimen under the care of their PCP as well as to allow their PCP to monitor any drug reactions. The patient was discharged home with prescriptions after they gave informed consent to the new medication. They were also fully informed by myself on the adverse effects and adverse drug interactions in order to provide adequate safeguards to prevent possible adverse reactions to medications. Departure Diagnosis: Primary Impression: Amphetamine abuse Additional Impression: Constipation Constipation type: unspecified constipation type Qualified Codes: K59.00 - Constipation, unspecified Condition: Fair Patient Instructions: Constipation (Adult) ABHILASH GAMEZ MD May 15, 2018 11:29
[2018-05-15] MEDS ORDERED: MAGNESIUM HYDROXIDE 30ML CUP PO ONE (11:30)
[2018-05-15 12:04] VITALS: BP 119/87; PULSE 76; RESP 22
== END 2018-05-15 12:04 | disposition home or self-care (01) ==
LOC: E/R 09:48
DX: F15.10 Other stimulant abuse, uncomplicated (principal); R40.2252 Coma scale, best verbal response, oriented, at arrival to emergency department; R40.2362 Coma scale, best motor response, obeys commands, at arrival to emergency department; R40.2142 Coma scale, eyes open, spontaneous, at arrival to emergency department; R10.9 Unspecified abdominal pain
CPT/HCPCS: 74018; 80053; 80307; 81001; 81003; 81025; 85025; 85610; 85730

== ENCOUNTER 2018-07-03 00:06 | Emergency (ER) | payer MEDICARE, OTHER ==
[~2018-07-03] VITALS: Ht 154.9 cm; Wt 51.0 kg
[2018-07-03 00:39] VITALS: Ht 154.9 cm; Wt 51.0 kg
[2018-07-03] MEDS ORDERED: SOD CHLORIDE 0.9% 1,000 ML IV STA (01:15)
--- NOTE | 2018-07-03 01:19 | ERD ---
ER Documentation Chief Complaint Chief Complaint VAG BLEED X 10 DAYS HPI This is a 32-year-old female who presents to the ED with complaints of intermittent vaginal bleeding times 10 days. Patient states her last menstrual cycle was 1 month ago on June 05. She states her menstrual cycles are usually regular and last 3 days. Patient originally thought her vaginal bleeding was related to her menstrual cycle but states her bleeding lasted longer than usual. She states she has had unprotected sexual intercourse in the past month and does not know if she could be . She does report some nausea and feeling lightheaded but otherwise denies any vomiting, diarrhea, abdominal or pelvic pain, flank pain, dysuria, frequency, urgency or any other complaints. She denies any chest pain, shortness of breath. No other com plaints. ROS All systems reviewed and are negative except as per history of present illness. Medications Home Meds No Active Prescriptions or Reported Meds Allergies Allergies: Coded Allergies: diphenhydramine (Verified Allergy, Unknown, 02/18/17) PMhx/Soc History of Surgery: No Anesthesia Reaction: No Hx Neurological Disorder: No Hx Respiratory Disorders: No Hx Cardiac Disorders: No Hx Psychiatric Problems: No Hx Miscellaneous Medical Probl: No Hx Alcohol Use: No Hx Substance Use: No Hx Tobacco Use: No FmHx Family History: No diabetes Physical Exam Vitals Vital Signs Date Temp Pulse Resp B/P (MAP) Pulse Ox O2 O2 Flow FiO2 Time Delivery Rate 07/03/18 98.2 106 18 122/73 100 Room Air 03:37 (89) 07/03/18 96.4 107 16 119/74 100 00:39 (89) Physical Exam Const: No acute distress. + Disheveled. Head: Atraumatic Eyes: Normal Conjunctiva ENT: Normal External Ears, Nose and Mouth. Neck: Full range of motion. No meningismus. Resp: Clear to auscultation bilaterally Cardio: Regular rate and rhythm, no murmurs Abd: Soft, non tender, non distended. Normal bowel sounds. Skin: No petechiae or rashes Back: No midline or flank tenderness Ext: No cyanosis, or edema Neur: Awake and alert Psych: Normal Mood and Affect Result Diagram: 07/03/18 0130 Results 24 hrs Laboratory Tests Test 07/03/18 01:30 07/03/18 01:35 07/03/18 03:05 White Blood Count 6.9 10^3/ul Red Blood Count 4.15 10^6/ul Hemoglobin 10.6 g/dl Hematocrit 33.9 % Mean Corpuscular Volume 81.7 fl Mean Corpuscular Hemoglobin 25.5 pg Mean Corpuscular 31.3 g/dl Hemoglobin Concent Red Cell Distribution Width 16.8 % Platelet Count 374 10^3/UL Mean Platelet Volume 9.9 fl Immature Granulocytes % 0.100 % Neutrophils % 61.4 % Lymphocytes % 23.4 % Monocytes % 12.8 % Eosinophils % 1.9 % Basophils % 0.4 % Nucleated Red Blood Cells % 0.0 /100WBC Immature Granulocytes # 0.010 10^3/ul Neutrophils # 4.2 10^3/ul Lymphocytes # 1.6 10^3/ul Monocytes # 0.9 10^3/ul Eosinophils # 0.1 10^3/ul Basophils # 0.0 10^3/ul Nucleated Red Blood Cells # 0.0 10^3/ul POC Beta HCG, Qualitative NEGATIVE Urine Color YELLOW Urine Clarity SLIGHTLY CLOUDY Urine pH 5.0 Urine Specific [place] 1.028 Urine Ketones TRACE mg/dL Urine Nitrite NEGATIVE mg/dL Urine Bilirubin NEGATIVE mg/dL Urine Urobilinogen 2+ mg/dL Urine Leukocyte Esterase NEGATIVE Marielena/ul Urine Microscopic RBC 1 /HPF Urine Microscopic WBC 3 /HPF Urine Squamous Epithelial Cells FEW /HPF Urine Bacteria FEW /HPF Urine Mucus MODERATE /HPF Urine Hemoglobin NEGATIVE mg/dL Urine Glucose NEGATIVE mg/dL Urine Total Protein NEGATIVE mg/dl Current Medications Medications Dose Sig/Brii Start Time Status Last (Trade) Ordered Route PRN Stop Time Admin Dose Reason Admin Sodium 1,000 ml @ Q1H STAT 07/03/18 DC 07/03/18 Chloride 1,000 mls/hr IV 01:15 07/03/18 01:46 02:14 Procedures/MDM EMERGENT LABS AND DIAGNOSTIC STUDIES: Lab Results above were reviewed and interpreted by me as below. CBC: H/H of 10.6 and 33. No e/o systemic infection or severe anemia Urine: no significant hematuria or pyuria Hcg preg: negative Otherwise within normal limits, unremarkable or as documented above. Radiology Results as interpreted by Radiology: PROCEDURE: US Pelvis. CLINICAL INDICATION: Vaginal bleeding, spotting x 10 days. Last menstrual period 06/05/2018 TECHNIQUE: Multiple sonographic images of the pelvis were obtained utilizing a transabdominal technique. The patient refused transvaginal ultrasound. The images were reviewed on a PACS workstation. COMPARISON: Abdominal radiographs of 05/15/2018 FINDINGS: The uterus measures 6 x 3.4 x 5 cm and is unremarkable. The thickness of the endometrium equals 8 mm. The right ovary measures 3 x 2.1 x 1.9 cm and is unremarkable. The left ovary measures 2.8 x 2.1 x 2.3 cm and is unremarkable. Color flow and spectral analysis demonstrates arterial and venous flow in the le ft ovary and color flow Doppler in the right ovary. No adnexal mass or free intrapelvic fluid is seen. IMPRESSION: No abnormality seen. Please see above. Nursing Notes Reviewed. Previous Medical Records requested via the Electronic Health Record. EMERGENCY DEPARTMENT COURSE / MEDICAL DECISION MAKIN yo G0 F presents with vaginal bleeding x 10 days. Ddx for this patient includes but is not limited to ectopic , menstrual cycle bleeding, PID, endometritis, leiomyoma, UTI, as well as many others. Urine is negative for infection, bleeding or . Pelvic US was unremarkable. CBC revealed mild anemia with H/H of 10.6 and 33.9, otherwise unremarkable. Pt is hemodynamically stable and does not meet criteria for blood transfusion at this time. She felt much improved status 1 L of IVF hydration. Not sure if pt truly had vaginal bleeding as workup, including UA was negative. She was given a copy of her results and told to follow up with with her PCP in 2 days. A list of community clinics was provided. She was told to return to the ED for any new or worsening symptoms. Prior to discharge, patients vital signs have been reviewed SPECIALIST FOLLOW UP RECOMMENDED: None Patient has been advised to follow up with primary care in 1-2 days. Departure Diagnosis: Primary Impression: Vaginal bleeding Additional Impression: Microcytic anemia Condition: Stable Patient Instructions: Anemia Referrals: [facility] ANGEL UGALDE PA-C Jul 03, 2018 01:19
[2018-07-03 03:37] VITALS: BP 122/73; PULSE 106; RESP 18
== END 2018-07-03 03:39 | disposition home or self-care (01) ==
LOC: FTE 00:06
DX: N93.9 Abnormal uterine and vaginal bleeding, unspecified (principal); D50.9 Iron deficiency anemia, unspecified
CPT/HCPCS: 36415; 76856; 81001; 81025; 85025; 99285; J7030; 81003

== ENCOUNTER 2018-12-12 22:42 | Emergency (ER) | payer MEDICARE, OTHER ==
[~2018-12-12] VITALS: Ht 152.4 cm; Wt 46.7 kg
[2018-12-12 22:46] VITALS: BP 111/72; PULSE 67; RESP 16; Ht 152.4 cm; Wt 46.7 kg
== END 2018-12-13 01:00 | disposition left against medical advice (07) ==
LOC: FTE 22:42
DX: Z53.21 Procedure and treatment not carried out due to patient leaving prior to being seen by health care provider (principal)